=== PATIENT | female | born 1980 | race Caucasian/White ===

== ENCOUNTER → 2016-07-09 | Outpatient (CLI) | payer SELFPAY ==
[2016-07-09 14:28] LABS: ALBUMIN 3.7 GM/DL (3.2-5.2); ALBUMIN/GLOBULIN RATIO 1.03 (1.00-1.93); ALKALINE PHOSPHATASE 59 U/L (45-117); ALT/SGPT 102 U/L (12-78); ANION GAP 8 MEQ/L (8-16); AST/SGOT 99 U/L (15-37); BILIRUBIN,TOTAL 0.6 MG/DL (0.2-1.0); BLOOD UREA NITROGEN 9 MG/DL (7-18); CALCIUM LEVEL 8.7 MG/DL (8.5-10.1); CARBON DIOXIDE LEVEL 29 MEQ/L (21-32); CHLORIDE LEVEL 107 MEQ/L (98-107); CREATININE FOR GFR 0.57 MG/DL (0.55-1.02); FREE T4 1.53 NG/DL (0.76-1.46); GLOMERULAR FILTRATION RATE > 60.0 (>60); GLUCOSE, FASTING 102 MG/DL (70-105); POTASSIUM SERUM 4.4 MEQ/L (3.5-5.1); SODIUM LEVEL 144 MEQ/L (136-145); TOTAL PROTEIN 7.3 GM/DL (6.4-8.2)
== END ==
LOC: M LAB 13:35
PROVIDERS: ATTEND Physician Assistant
DX: E78.4 Other hyperlipidemia (principal); E03.9 Hypothyroidism, unspecified; E11.9 Type 2 diabetes mellitus without complications

== ENCOUNTER 2016-10-18 20:13 | Emergency (ER) | payer OTHER, SELFPAY ==
[~2016-10-18] VITALS: Ht 157.5 cm; Wt 108.4 kg
[2016-10-18] MEDS ORDERED: METF1000 PO (20:22)
[2016-10-18] MEDS ORDERED: OMEP40CA2 PO ×2 (20:22)
[2016-10-18] MEDS ORDERED: birth control PO (20:22)
[2016-10-18] MEDS ORDERED: IRON1TAB PO (20:22)
[2016-10-18] MEDS ORDERED: LISI10TA4 PO (20:22)
[2016-10-18] MEDS ORDERED: LEVO150T7 PO (20:22)
[2016-10-18] MEDS ORDERED: ONDANSETRON 4MG/2ML VIAL (J2405) IV ONE (21:45)
[2016-10-18] MEDS ORDERED: KETOROLAC 30 MG/ML VIAL (J1885) IV ONE (21:45)
[2016-10-18] MEDS ORDERED: NS 1,000 ML IV ONE (21:45)
[2016-10-18] MEDS ORDERED: MORPHINE 2 MG/ML 1ML SYRINGE IV PRN (21:45)
[2016-10-18 21:59] LABS: BASO % 0.3 % (0.0-1.0); EOS # 0.2 K/mm3 (0.0-0.50); EOS % 1.1 % (0.0-3.0); LARGE UNSTAINED CELL # 0.2 K/mm3 (0.0-0.4); LARGE UNSTAINED CELL % 0.9 % (0.0-4.0); LYMPH # 3.4 K/mm3 (1.5-4.5); LYMPH % 18.4 % (24.0-44.0); MEAN CORPUSCULAR HEMOGLOBIN 26.4 pg (27.0-33.0); MEAN CORPUSCULAR HGB CONC 31.7 g/dl (32.0-36.5); MEAN CORPUSCULAR VOLUME 83.3 fl (80.0-96.0); MONO # 0.5 K/mm3 (0.0-0.8); MONO % 2.7 % (0.0-5.0); NEUTROPHILS # 14.3 K/mm3 (1.8-7.7); NEUTROPHILS % 76.7 % (36.0-66.0); PLATELET COUNT, AUTOMATED 368 k/mm3 (150-450); WHITE BLOOD COUNT 18.6 K/mm3 (4.0-10.0)
[2016-10-18 22:26] LABS: ALBUMIN 3.4 GM/DL (3.2-5.2); ALBUMIN/GLOBULIN RATIO 0.92 (1.00-1.93); ALKALINE PHOSPHATASE 54 U/L (45-117); ALT/SGPT 65 U/L (12-78); ANION GAP 10 MEQ/L (8-16); AST/SGOT 80 U/L (15-37); BILIRUBIN,DIRECT 0.2 MG/DL (0.0-0.2); BILIRUBIN,TOTAL 0.5 MG/DL (0.2-1.0); BLOOD UREA NITROGEN 12 MG/DL (7-18); CALCIUM LEVEL 8.8 MG/DL (8.5-10.1); CARBON DIOXIDE LEVEL 28 MEQ/L (21-32); CHLORIDE LEVEL 103 MEQ/L (98-107); CREATININE FOR GFR 0.76 MG/DL (0.55-1.02); GLOMERULAR FILTRATION RATE > 60.0 (>60); GLUCOSE, FASTING 144 MG/DL (70-105); POTASSIUM SERUM 4.1 MEQ/L (3.5-5.1); SODIUM LEVEL 141 MEQ/L (136-145); TOTAL PROTEIN 7.1 GM/DL (6.4-8.2)
--- NOTE | 2016-10-18 22:40 | REPUSA ---
Clinical history: Right upper quadrant pain. Findings: The pancreas is limited in visualization secondary to overlying bowel gas, but appears margo sly unremarkable. The liver demonstrates increased echotexture and echogenicity, with no mass lesion s. The gallbladder contains several echogenic shadowing foci. There is no evidence of gallbladder wal l thickening. The common bile duct measures 5 mm and is within normal limits. The right kidney measur es 13.1 x 5.6 x 4.6 cm, and is unremarkable. There is no ascites. Impression: 1. Cholelithiasis without evidence of acute cholecystitis. 2. Fatty infiltration of the liver.
[2016-10-18] MEDS ORDERED: NORCOTAB PO (23:21)
[2016-10-18] MEDS ORDERED: ZOFR4TAB3 PO (23:21)
[2016-10-18] MEDS ORDERED: NORCO 5/325MG TABLET (BULK FOR ED) PO ONE (23:30)
[2016-10-18 23:33] VITALS: BP 130/68
== END 2016-10-18 23:48 | disposition home or self-care (01) ==
LOC: M ED 22:03
DX: K80.60 Calculus of gallbladder and bile duct with cholecystitis, unspecified, without obstruction (principal); K80.20 Calculus of gallbladder without cholecystitis without obstruction; K29.70 Gastritis, unspecified, without bleeding; K76.0 Fatty (change of) liver, not elsewhere classified; Z79.3 Long term (current) use of hormonal contraceptives; Z79.84 Long term (current) use of oral hypoglycemic drugs; Z79.899 Other long term (current) drug therapy; Z88.5 Allergy status to narcotic agent; Z85.850 Personal history of malignant neoplasm of thyroid

== ENCOUNTER → 2016-12-02 | Outpatient (CLI) | payer OTHER ==
[~2016-12-02] MED LIST: IRON1TAB PO; LEVO150T7 PO; LISI10TA4 PO; METF1000 PO; NORCOTAB PO; OMEP40CA2 PO; ZOFR4TAB3 PO; birth control PO
[2016-12-02 18:29] LABS: ALBUMIN 3.5 GM/DL (3.2-5.2); ALBUMIN/GLOBULIN RATIO 0.95 (1.00-1.93); ALKALINE PHOSPHATASE 63 U/L (45-117); ALT/SGPT 98 U/L (12-78); ANION GAP 6 MEQ/L (8-16); AST/SGOT 67 U/L (15-37); BILIRUBIN,TOTAL 0.2 MG/DL (0.2-1.0); BLOOD UREA NITROGEN 11 MG/DL (7-18); CALCIUM LEVEL 8.9 MG/DL (8.5-10.1); CARBON DIOXIDE LEVEL 29 MEQ/L (21-32); CHLORIDE LEVEL 107 MEQ/L (98-107); GLOMERULAR FILTRATION RATE > 60.0 (>60); GLUCOSE, FASTING 142 MG/DL (70-105); POTASSIUM SERUM 4.7 MEQ/L (3.5-5.1); SODIUM LEVEL 142 MEQ/L (136-145); TOTAL PROTEIN 7.2 GM/DL (6.4-8.2)
--- NOTE | 2016-12-02 19:44 | REP ---
Chest x-ray: Two views. History: There is choose with chest pain. . Comparison study: December 14, 2012. . Findings: The lungs are well inflated and free of infiltrate. The pleural angles are sharp. The heart size is normal. Pulmonary vasculature is not increased. No significant bony abnormality is seen. There are mild degenerative changes in the thoracic spine. Impression: Negative chest x-ray. Signed by Carlos Johansen MD 12/02/2016 07:35 P
[2016-12-02 20:06] LABS: BASO # 0.1 K/mm3 (0.0-0.2); BASO % 0.9 % (0.0-1.0); EOS # 0.3 K/mm3 (0.0-0.50); LARGE UNSTAINED CELL # 0.2 K/mm3 (0.0-0.4); LARGE UNSTAINED CELL % 1.6 % (0.0-4.0); LYMPH # 3.7 K/mm3 (1.5-4.5); MEAN CORPUSCULAR HEMOGLOBIN 26.5 pg (27.0-33.0); MEAN CORPUSCULAR HGB CONC 32.2 g/dl (32.0-36.5); MEAN CORPUSCULAR VOLUME 82.1 fl (80.0-96.0); MONO # 0.7 K/mm3 (0.0-0.8); MONO % 4.8 % (0.0-5.0); NEUTROPHILS # 9.2 K/mm3 (1.8-7.7); NEUTROPHILS % 64.6 % (36.0-66.0); PLATELET COUNT, AUTOMATED 345 k/mm3 (150-450); RED CELL DISTRIBUTION WIDTH 13.4 % (11.5-14.5); WHITE BLOOD COUNT 14.3 K/mm3 (4.0-10.0)
--- NOTE | 2016-12-04 13:35 | ECGEPIP ---
Stationary ECG Study [facility] Test Date: 2016-12-02 Pat Name: ONEIDA MILAN Department: Room: - Gender: F [employer] Head: : 1980 Requested By: ANIBAL French PA-C Order Number: [id number] Reading MD: Cleveland Webber Measurements Intervals [place] Rate: 71 P: 37 GA: 157 QRS: 36 QRSD: 97 T: 17 QT: 387 QTc: 421 Interpretive Statements SINUS RHYTHM SIMILAR TO 12/14/12 Electronically Signed On 12-04-2016 13:34:59 EDT by Cleveland Webber
== END ==
LOC: M LAB 17:05
PROVIDERS: ATTEND Physician Assistant
DX: Z01.818 Encounter for other preprocedural examination (principal); D72.829 Elevated white blood cell count, unspecified; K80.20 Calculus of gallbladder without cholecystitis without obstruction

== ENCOUNTER 2016-12-09 00:02 | Inpatient (IN) | payer OTHER ==
[~2016-12-09] VITALS: Ht 157.5 cm; Wt 104.0 kg
[~2016-12-09 00:02] MED LIST changes: -METF1000 PO; +METF10004 PO
[2016-12-09] MEDS ORDERED: ONDANSETRON 4MG/2ML VIAL (J2405) IV ONE (01:30)
[2016-12-09] MEDS ORDERED: NS 1,000 ML IV ONE (01:30)
[2016-12-09] MEDS ORDERED: MORPHINE 4 MG/ML 1ML SYRINGE IV PRN ×2 (01:30→04:00)
[2016-12-09 01:48] LABS: BASO # 0.1 K/mm3 (0.0-0.2); BASO % 0.7 % (0.0-1.0); EOS # 0.2 K/mm3 (0.0-0.50); EOS % 1.2 % (0.0-3.0); LARGE UNSTAINED CELL # 0.4 K/mm3 (0.0-0.4); LARGE UNSTAINED CELL % 2.3 % (0.0-4.0); LYMPH # 2.9 K/mm3 (1.5-4.5); LYMPH % 16.3 % (24.0-44.0); MEAN CORPUSCULAR HEMOGLOBIN 26.6 pg (27.0-33.0); MEAN CORPUSCULAR HGB CONC 33.6 g/dl (32.0-36.5); MEAN CORPUSCULAR VOLUME 79.2 fl (80.0-96.0); MONO % 5.3 % (0.0-5.0); NEUTROPHILS # 13.3 K/mm3 (1.8-7.7); NEUTROPHILS % 74.2 % (36.0-66.0); PLATELET COUNT, AUTOMATED 325 k/mm3 (150-450); RED CELL DISTRIBUTION WIDTH 13.2 % (11.5-14.5)
[2016-12-09 01:50] LABS: CONTROL LINE HCG INT CTR LINE PRESENT
[2016-12-09 01:55] LABS: ALBUMIN 3.2 GM/DL (3.2-5.2); ALBUMIN/GLOBULIN RATIO 0.86 (1.00-1.93); ALKALINE PHOSPHATASE 66 U/L (45-117); ALT/SGPT 28 U/L (12-78); ANION GAP 13 MEQ/L (8-16); AST/SGOT 24 U/L (15-37); BILIRUBIN,DIRECT < 0.1 MG/DL (0.0-0.2); BILIRUBIN,TOTAL 0.3 MG/DL (0.2-1.0); BLOOD UREA NITROGEN 14 MG/DL (7-18); CARBON DIOXIDE LEVEL 22 MEQ/L (21-32); CHLORIDE LEVEL 106 MEQ/L (98-107); CREATININE FOR GFR 0.67 MG/DL (0.55-1.02); GLOMERULAR FILTRATION RATE > 60.0 (>60); GLUCOSE, FASTING 131 MG/DL (70-105); POTASSIUM SERUM 3.8 MEQ/L (3.5-5.1); SODIUM LEVEL 141 MEQ/L (136-145); TOTAL PROTEIN 6.9 GM/DL (6.4-8.2)
[2016-12-09] MEDS ORDERED: ISOVUE-370 76% 100ML VIAL (Q9967) As Ordered ONE (02:46)
[2016-12-09] MEDS ORDERED: MORPHINE 2 MG/ML 1ML SYRINGE As Ordered ONE ×2 (03:49→03:53)
--- NOTE | 2016-12-09 04:00 | REPUSA ---
CLINICAL HISTORY: Abdominal pain. TECHNIQUE: Multiple axial, sagittal and coronal CT images were obtained through the abdomen and pelvi s after administration of intravenous contrast material. COMMENTS: The liver is mildly enlarged decreased attenuation without mass or defect. There is no intra or extra hepatic biliary ductal dilatation. The spleen is normal. The gallbladder is mildly thickened. Mild mejía rrounding free fluid. The pancreas is of normal contour and attenuation characteristics. There is no evidence of adrenal mass. Both kidneys demonstrate prompt and equal nephrograms. The kidneys are normal in size, shape and conf iguration. There is no evidence of renal or ureteral mass. No renal or ureteral calculi are identifie d. There is no hydroureter or hydronephrosis. No evidence for appendicitis. There is diffuse thickening of the wall of the ileum with associated e nhancement. Diffusely thickened, enhancing colon. No evidence for small or large bowel obstruction. There is no evidence of intrinsic or extrinsic bladder mass. There is small amount of free pelvic flu id. Images of the lung bases show no evidence of pleural or parenchymal mass. There are no pleural effusi ons. The bony structures are free of lytic or blastic lesions. IMPRESSION: Enterocolitis. Inflammatory bowel disease is included in the differential diagnosis. No perforation or abscess formation. No evidence for pneumoperitoneum. Free fluid in the pelvis. Hepatomegaly with fat infiltration. Mildly thickened gallbladder. Mild surrounding free fluid. Thank you for your kind referral of this patient.
[2016-12-09] MEDS ORDERED: metroNIDAZOLE 500 MG in APPROPRIATE DILUENT 1 EA IV ONE (04:30)
[2016-12-09] MEDS ORDERED: CIPROFLOXACIN 400 MG in APPROPRIATE DILUENT 1 EA IV ONE (04:30)
[2016-12-09] MEDS ORDERED: SYNT100T PO (04:44)
[2016-12-09] MEDS ORDERED: METF750T PO (04:44)
[2016-12-09] MEDS ORDERED: FERR1TAB8 PO (04:44)
[2016-12-09] MEDS ORDERED: TYLE500T78 PO (04:47)
[2016-12-09] MEDS ORDERED: PATIENT COMMENT (04:47)
[2016-12-09] MEDS ORDERED: VITA1CAP40 PO (04:47)
--- NOTE | 2016-12-09 05:09 | HPEPDOC ---
General Date of Admission Chief Complaint The patient is a 36-year-old female admitted with a reason for visit of N/V/D. Source: Patient Exam Limitations: No limitations Timing/Duration: Day(s) (2) Severity: Severe Associated Symptoms: Fever, Chills, Loss of appetite, Malaise, Nausea, Vomiting History of Present Illness 36 y/o female with past medical hx of thyroid CA s/p resection 2013, DM2, GERD, Fe deficient anemia presents with CC of 2-3 day duration of intense abdominal pain associated with profuse watery stools. The pt states that 3 days ago she began having very intense, sharp low abdominal pain that was shortly followed by episodes of profuse loose stool, she states that since that time shes had 50- 60 episodes of loose stool, denies blood or mucus in the stool. She states she also had a fever, temp of 102 one day ago that she took tylenol for and last night began having nausea and vomiting episodes, of watery content, no blood. She denies SOB, palpitations or CP. She states this has never happened to her before, denies recent travel or eating anything unusual. Denies sick contact. Denies h/a or change in vision. Admits to dec. appetite. Home Medications Scheduled (Ortho Tri-Cyclen 0.18/0.215/0.25 mg-35 Mcg) 1 Tab Tab, 1 TAB PO DAILY, ( Reported) Ergocalciferol (Vitamin D) 50,000 Unit Cap, 50,000 UNIT PO 1XWK, (Reported) WEDNESDAY MORNINGS Ferrous Sulfate (Ferrous Sulfate) 325 Mg Tab, 325 MG PO BID, (Reported) Levothyroxine Sodium (Synthroid) 100 Mcg Tab, 200 MCG PO DAILY, (Reported) Lisinopril (Lisinopril) 10 Mg Tab, 10 MG PO DAILY, (Reported) Metformin Hydrochloride (Metformin HCl ER) 750 Mg Tab, 750 MG PO QPM, (Reported) TAKES AFTER DINNER Omeprazole (Omeprazole) 40 Mg Cap, 40 MG PO QPM, (Reported) TAKES AFTER DINNER Scheduled PRN Acetaminophen (Tylenol Extra Strength) 500 Mg Tab, 1,000 MG PO Q6H PRN for PAIN, (Reported) Allergies Coded Allergies: Codeine (Verified Allergy, Unknown, 09/12/12) Past Medical History Medical History thyroid cancer s/p resection 2014 gerd dm2 Family History Significant Family History: No pertinent family hx Social History * Smoker: Denies Alcohol: Denies Drugs: denies Review of Symptoms Constitutional: Reports: Chills, Fever, Malaise, Weakness, Fatigue Eyes: Denies: Vision change, Conjunctivae inflammation ENT: Denies: Head Aches Skin: Denies: Rash, Lesions Pulmonary: Denies: Dyspnea, Cough Cardiovascular: Denies: Chest Pain, Palpitations, Orthopnea, Lt Headedness Gastrointestinal: Reports: Nausea, Vomiting, Abdominal Pain, Diarrhea, Denies: Constipation, Melena, Hematochezia Genitourinary: Denies: Dysuria Endocrine: Denies: Polydipsia Neurological: Denies: Weakness, Numbness Psych: Reports: Mood Normal Physical Examination General Exam: Positive: Alert, Cooperative, Mild Distress Eye Exam: Positive: Conjunctiva & lids normal, EOMI, Negative: Sclera icteric ENT Exam: Positive: Mucous membr. moist/pink, Pharynx Normal Neck Exam: Positive: Supple Chest Exam: Positive: Clear to auscultation, Normal air movement, Negative: Rales, Rhonchi, Wheezing, Diminished Heart Exam: Positive: Rate Normal, Regular Rhythm, Normal S1, Normal S2, Negative: Gallops, Murmurs Abdomen Exam: Positive: Normal bowel sounds, Soft, Tenderness (diffuse), Negative: Hepatospenomegaly, Mass Neuro Exam: Positive: Normal Speech Psych Exam: Positive: Mental status NL Vital Signs Vital Signs Date Time Temp Pulse Resp B/P (MAP) Pulse Ox O2 Delivery O2 Flow Rate FiO2 12/09/16 04:18 16 95 Room Air 12/09/16 03:03 131/71 (91) 12/09/16 02:47 76 12/09/16 01:01 99.2 Laboratory Data Labs 24H Laboratory Tests 2 12/09/16 01:15: White Blood Count 18.0H, Red Blood Count 5.25, Hemoglobin 14.0, Hematocrit 41.6 , Mean Corpuscular Volume 79.2L, Mean Corpuscular Hemoglobin 26.6L, Mean Corpuscular Hemoglobin Concent 33.6, Red Cell Distribution Width 13.2, Platelet Count 325, Neutrophils (%) (Auto) 74.2H, Lymphocytes (%) (Auto) 16.3L, Monocytes (%) (Auto) 5.3H, Eosinophils (%) (Auto) 1.2, Basophils (%) (Auto) 0.7 , Neutrophils # (Auto) 13.3H, Lymphocytes # (Auto) 2.9, Monocytes # (Auto) 1.0H , Eosinophils # (Auto) 0.2, Basophils # (Auto) 0.1, Large Unclassified Cells % 2.3, Large Unclassified Cells # 0.4, Anion Gap 13, Glomerular Filtration Rate > 60.0, Calcium Level 9.0, Aspartate Amino Transf (AST/SGOT) 24, Alanine Aminotransferase (ALT/SGPT) 28, Alkaline Phosphatase 66, Total Bilirubin 0.3, Direct Bilirubin < 0.1, Total Protein 6.9, Albumin 3.2, Albumin/Globulin Ratio 0.86L, Lipase 236, Human Chorionic Gonadotropin, Qual NEGATIVE 12/09/16 04:07: Urine Appearance CLEAR, Urine Color YELLOW, Urine pH 5.0, Urine Specific [place] >1.060H, Urine Protein NEGATIVE, Urine Glucose (UA) NEGATIVE, Urine Ketones 2+H, Urine Urobilinogen 0.2, Urine Bilirubin NEGATIVE, Urine Leukocyte Esterase NEGATIVE, Urine Blood NEGATIVE, Urine Nitrite NEGATIVE, Urine WBC (Auto ) 2, Urine RBC (Auto) 1, Urine Hyaline Casts (Auto) 0, Urine Bacteria (Auto) NEGATIVE, Urine Squamous Epithelial Cells 5, Urine Mucus (Auto) SMALL, Urine Sperm (Auto) CBC/BMP Laboratory Tests 12/09/16 01:15 Red Blood Count 5.25, Mean Corpuscular Volume 79.2 L, Mean Corpuscular Hemoglobin 26.6 L, Mean Corpuscular Hemoglobin Concent 33.6, Red Cell Distribution Width 13.2, Neutrophils (%) (Auto) 74.2 H, Lymphocytes (%) (Auto) 16.3 L, Monocytes (%) (Auto) 5.3 H, Eosinophils (%) (Auto) 1.2, Basophils (%) ( Auto) 0.7, Neutrophils # (Auto) 13.3 H, Lymphocytes # (Auto) 2.9, Monocytes # ( Auto) 1.0 H, Eosinophils # (Auto) 0.2, Basophils # (Auto) 0.1 Microbiology Microbiology 12/09/16 Blood Culture, Received Pending 12/09/16 Blood Culture, Received Pending 12/09/16 Gastrointestinal Tract Panel (PCR) - Preliminary, Resulted Campylobacter 12/09/16 Urine Culture, Received Pending Problems (1) Pancolitis Status: Acute Response to Treatment: Stable Problem Text: CT in ED showed Enterocolitis. Inflammatory bowel disease is included in the differential diagnosis. No perforation or abscess formation. No evidence for pneumoperitoneum. Free fluid in the pelvis. Hepatomegaly with fat infiltration. Mildly thickened gallbladder. Mild surrounding free fluid Will treat with antibiotics GI panel pending Sulfasalazine treatment begin (2) Vomiting Status: Acute Response to Treatment: Stable Problem Text: Zofran scheduled (3) Abdominal pain Status: Acute Response to Treatment: Stable Problem Text: Morphine scheduled (4) DM2 (diabetes mellitus, type 2) Status: Chronic Response to Treatment: Stable Problem Text: Sliding scale (5) Hx of thyroid cancer Status: Chronic Response to Treatment: Stable Problem Text: stable continue home medications (6) DVT prophylaxis Status: Acute Response to Treatment: Stable Problem Text: scd teds Plan / VTE VTE Prophylaxis Ordered?: Yes GME ATTESTATION GME ATTESTATION My preceptor for this patient encounter was physically present in the building during the encounter and was fully available. As needed, all aspects of the patient interview, examination, medical decision making process, and medical care plan development were reviewed and approved by the preceptor. Preceptor is aware and concurs with the plan as stated in the body of this note and will attest to such by his/her cosignature. TOM STOCKTON DO Dec 09, 2016 05:09
[2016-12-09] MEDS ORDERED: ORTHTAB14 PO (05:17)
[2016-12-09] MEDS ORDERED: GLUCAGON FOR INJ 1 MG VIAL (J1610) SC PRN (05:30)
[2016-12-09] MEDS ORDERED: GLUCOSE 4 GM CHEW TABLET PO PRN (05:30)
[2016-12-09] MEDS ORDERED: DEXTROSE 50% 50 ML SYRINGE IV PRN (05:30)
[2016-12-09 09:45] VITALS: BP 128/77
[2016-12-09] MEDS: MORPHINE 2 MG/ML 1ML SYRINGE IV PRN ×3 (11:48→21:56)
[2016-12-09] MEDS: LEVOTHYROXINE 100MCG TABLET (0.1MG) PO SCH (12:58)
[2016-12-09] MEDS: NS 1,000 ML IV SCH ×2 (12:59→22:30)
[2016-12-09] MEDS: sulfaSALAzine 500 MG TABEC PO SCH ×2 (15:57→21:56)
[2016-12-09] MEDS: FERROUS SULFATE 325MG TAB PO SCH ×2 (15:58→21:56)
[2016-12-09] MEDS: LISINOPRIL 10 MG TAB PO SCH (15:59)
[2016-12-09] MEDS: CIPROFLOXACIN 400 MG in APPROPRIATE DILUENT 1 EA IV SCH (15:59)
[2016-12-09 16:00] VITALS: BP 131/68
--- NOTE | 2016-12-09 18:24 | IPN ---
DATE: 12/09/2016 SUBJECTIVE: Patient is seen and examined in the room today. Patient stated she started having diarrhea during the weekend. Patient is living with her and they have a son, both of them do not have any gastrointestinal (GI) symptoms. OBJECTIVE: VITAL SIGNS: Temperature is 98.3, pulse 78, respirations 18, blood pressure 128/77, pulse oximetry 97% in room air. GENERAL: No sign of acute distress. HEENT: Normocephalic, atraumatic. Extraocular motors grossly intact. CARDIOVASCULAR: Positive S1, S2, regular rate. LUNGS: Clear to auscultation bilaterally. ABDOMEN: Mild tenderness to palpation. Abdomen is soft. Bowel sounds present. EXTREMITIES: No edema. No sign of cyanosis. LABORATORY DATA: WBC 18, hemoglobin 14, hematocrit 41.6, platelet count 325. Sodium 141, potassium 3.8, chloride 106, carbon dioxide 22, BUN 14, creatinine 0.67, GFR greater than 60, fasting glucose 131, calcium 9, total bilirubin 0.3, direct bilirubin less than 0.1, AST 24, ALT 28, alkaline phosphatase 66, total protein 6.9, albumin 3.2, lactic acid is 236. hCG is negative. ASSESSMENT AND PLAN: 1. Campylobacter infection. Patient was started on ciprofloxacin. Patient has nausea and vomiting due to the bacterial infection, will control with Zofran. Start with liquid diet and advance as tolerated. Patient will be on fluid support while patient is advancing her diet. 2. Type 2 diabetes, on sliding scale. 3. History of thyroid cancer. 4. Deep venous thrombosis (DVT) prophylaxis. Patient is on thromboembolism deterrents (TEDs) and sequential compression device.
[2016-12-09] MEDS: OMEPRAZOLE 20 MG CAP PO SCH (18:38)
[2016-12-09] MEDS: HumaLOG INSULIN (NovoLOG) PER UNIT SC SCH (18:39)
[2016-12-09 20:00] VITALS: BP 138/86
[2016-12-09] MEDS ORDERED: HumaLOG INSULIN (NovoLOG) PER UNIT SC SCH (21:00)
[2016-12-10] VITALS: BP 125/74
[2016-12-10] MEDS: CIPROFLOXACIN 400 MG in APPROPRIATE DILUENT 1 EA IV SCH ×2 (03:57→16:04)
[2016-12-10] MEDS: LEVOTHYROXINE 100MCG TABLET (0.1MG) PO SCH (06:30)
[2016-12-10 06:53] LABS: BASO # 0.1 K/mm3 (0.0-0.2); BASO % 0.5 % (0.0-1.0); EOS # 0.3 K/mm3 (0.0-0.50); LARGE UNSTAINED CELL # 0.3 K/mm3 (0.0-0.4); LARGE UNSTAINED CELL % 2.4 % (0.0-4.0); LYMPH # 2.7 K/mm3 (1.5-4.5); LYMPH % 21.9 % (24.0-44.0); MEAN CORPUSCULAR HGB CONC 32.8 g/dl (32.0-36.5); MEAN CORPUSCULAR VOLUME 79.4 fl (80.0-96.0); MONO # 0.5 K/mm3 (0.0-0.8); MONO % 4.6 % (0.0-5.0); NEUTROPHILS # 7.4 K/mm3 (1.8-7.7); NEUTROPHILS % 67.6 % (36.0-66.0); PLATELET COUNT, AUTOMATED 227 k/mm3 (150-450); RED CELL DISTRIBUTION WIDTH 13.4 % (11.5-14.5)
[2016-12-10 07:03] LABS: ANION GAP 8 MEQ/L (8-16); BLOOD UREA NITROGEN 6 MG/DL (7-18); CARBON DIOXIDE LEVEL 26 MEQ/L (21-32); CHLORIDE LEVEL 108 MEQ/L (98-107); CREATININE FOR GFR 0.61 MG/DL (0.55-1.02); GLOMERULAR FILTRATION RATE > 60.0 (>60); GLUCOSE, FASTING 121 MG/DL (70-105); POTASSIUM SERUM 3.6 MEQ/L (3.5-5.1); SODIUM LEVEL 142 MEQ/L (136-145)
[2016-12-10 08:00] VITALS: BP 136/75
[2016-12-10] MEDS: sulfaSALAzine 500 MG TABEC PO SCH ×4 (08:30→20:24)
[2016-12-10] MEDS: NS 1,000 ML IV SCH ×3 (08:30→21:46)
[2016-12-10] MEDS: HumaLOG INSULIN (NovoLOG) PER UNIT SC SCH ×3 (08:30→17:53)
[2016-12-10] MEDS: LISINOPRIL 10 MG TAB PO SCH (08:31)
[2016-12-10] MEDS: FERROUS SULFATE 325MG TAB PO SCH ×2 (08:31→20:25)
[2016-12-10] MEDS: MORPHINE 2 MG/ML 1ML SYRINGE IV PRN ×2 (13:05→22:27)
[2016-12-10 16:00] VITALS: BP 134/81
[2016-12-10] MEDS: OMEPRAZOLE 20 MG CAP PO SCH (18:52)
[2016-12-10 20:00] VITALS: BP 123/64
--- NOTE | 2016-12-10 20:29 | IPN ---
DATE: 12/10/2016 SUBJECTIVE: Patient seen and examined in the room today. Patient stated her nausea and vomiting are improving. Patient's bowel movement is also improving; however, patient noted her abdominal pain was changed from generalized upper abdominal pain to the right upper quadrant pain. No overnight events reported. OBJECTIVE: VITAL SIGNS: Temperature 97.9, pulse is 75, respirations 18, blood pressure 136/75, pulse oximetry 98% in room air. GENERAL: No sign of distress, alert and oriented times three. HEENT: Normocephalic, atraumatic. Extraocular motor grossly intact. CARDIOVASCULAR: Positive S1, S2, respiratory rate. LUNGS: Clear to auscultation bilaterally. ABDOMEN: Tenderness to palpation in the right upper quadrant. Abdomen soft. Bowel sounds present. EXTREMITIES: No edema. No sign of cyanosis. LABORATORY DATA: WBC 11, hemoglobin 11.4, hematocrit is 34.9, platelet count is 227. Sodium is 142, potassium 3.6, chloride is 108, carbon dioxide is 26, BUN 6, creatinine 0.61, GFR greater than 60, fasting glucose 121, calcium 8, lipase is 433. ASSESSMENT AND PLAN: 1. Campylobacter infection. Patient is started on ciprofloxacin. Nausea and vomiting are improving. Bowel movement is also improved. Patient is able to advance diet as tolerated; however, today, due to acute onset of pancreatitis, patient's diet was switched to nothing by mouth. Patient will continue on fluid support. 2. Acute pancreatitis. Patient nothing by mouth. Patient is on intravenous (IV) support. Patient has morphine as needed for the pain. 3. Type 2 diabetes. Patient is currently nothing by mouth. Will follow with sliding scale every 6 hours. Patient has history of thyroid cancer. 4. History of gallbladder disease. Per patient, patient has established with Dr. Díaz. Patient is supposed to have scheduled gallbladder surgery on 12/25/2016. Patient had a CT abdomen performed on 12/09/2016, which showed mildly thickened gallbladder and mild surrounding free fluid. We will obtain gallbladder ultrasound. 5. Deep vein thrombosis (DVT) prophylaxis. Patient on thromboembolic deterrents (TEDs), and sequential compression devices. Tomorrow, patient's care will transfer to the [facility].
[2016-12-10] MEDS: ONDANSETRON 4MG/2ML VIAL (J2405) IV PRN (22:35)
[2016-12-11] VITALS: BP 131/65
[2016-12-11] MEDS: CIPROFLOXACIN 400 MG in APPROPRIATE DILUENT 1 EA IV SCH ×2 (03:28→16:19)
[2016-12-11] MEDS: HumaLOG INSULIN (NovoLOG) PER UNIT SC SCH ×4 (06:00→17:49)
[2016-12-11] MEDS: LEVOTHYROXINE 100MCG TABLET (0.1MG) PO SCH (06:05)
[2016-12-11] MEDS: NS 1,000 ML IV SCH ×2 (06:05→20:12)
[2016-12-11] MEDS: ONDANSETRON 4MG/2ML VIAL (J2405) IV PRN (06:11)
[2016-12-11] MEDS: MORPHINE 2 MG/ML 1ML SYRINGE IV PRN (06:11)
[2016-12-11 07:37] LABS: BASO % 0.6 % (0.0-1.0); EOS # 0.2 K/mm3 (0.0-0.50); EOS % 2.3 % (0.0-3.0); LARGE UNSTAINED CELL # 0.2 K/mm3 (0.0-0.4); LARGE UNSTAINED CELL % 2.1 % (0.0-4.0); LYMPH # 2.1 K/mm3 (1.5-4.5); LYMPH % 24.9 % (24.0-44.0); MEAN CORPUSCULAR HEMOGLOBIN 26.1 pg (27.0-33.0); MEAN CORPUSCULAR HGB CONC 32.6 g/dl (32.0-36.5); MEAN CORPUSCULAR VOLUME 79.9 fl (80.0-96.0); MONO # 0.4 K/mm3 (0.0-0.8); MONO % 4.8 % (0.0-5.0); NEUTROPHILS # 5.5 K/mm3 (1.8-7.7); NEUTROPHILS % 65.4 % (36.0-66.0); PLATELET COUNT, AUTOMATED 241 k/mm3 (150-450); RED CELL DISTRIBUTION WIDTH 13.3 % (11.5-14.5); WHITE BLOOD COUNT 8.5 K/mm3 (4.0-10.0)
[2016-12-11 07:50] LABS: ANION GAP 8 MEQ/L (8-16); BLOOD UREA NITROGEN 4 MG/DL (7-18); CALCIUM LEVEL 7.8 MG/DL (8.5-10.1); CARBON DIOXIDE LEVEL 24 MEQ/L (21-32); CHLORIDE LEVEL 111 MEQ/L (98-107); CREATININE FOR GFR 0.45 MG/DL (0.55-1.02); GLOMERULAR FILTRATION RATE > 60.0 (>60); GLUCOSE, FASTING 136 MG/DL (70-105); POTASSIUM SERUM 3.4 MEQ/L (3.5-5.1); SODIUM LEVEL 143 MEQ/L (136-145)
--- NOTE | 2016-12-11 08:26 | REP ---
Clinical: Pancreatitis. Technique: Real time ely scale ultrasound examination using curved array transducer. Findings: Liver demonstrates fatty infiltration without focal hepatic lesion identified. Pancreas is incompletely evaluated due to interposed bowel gas and poor through transmission. The gallbladder demonstrates [id number] pattern consistent with cholelithiasis. No obvious wall thickening or pericholecystic fluid is appreciated. Right kidney is normal in reniform shape without hydronephrosis and measures 13.5 x 7.2 x 4.8 cm. No ascites. Impression: Cholelithiasis. Fatty infiltration to the liver. Signed by Harris Veras MD 12/11/2016 08:17 A
[2016-12-11 08:30] VITALS: BP 158/90
[2016-12-11] MEDS: FERROUS SULFATE 325MG TAB PO SCH ×2 (09:20→20:12)
[2016-12-11] MEDS: LISINOPRIL 10 MG TAB PO SCH (09:20)
--- NOTE | 2016-12-11 09:25 | IPNPDOC ---
Subjective Date Seen The patient was seen on 12/11/16. Subjective Chief Complaint/HPI The patient is a 36-year-old female admitted with a reason for visit of Enterocolitis. Events since last encounter Elevated lipase yesterday. US completed: + for cholelithiasis. + nausea, abdominal pain. + flatus Constitutional: Denies: Chills, Fever, Night Sweats Skin: Denies: Rash, Lesions, Breakdown Pulmonary: Denies: Dyspnea, Cough Cardiovascular: Denies: Chest Pain, Palpitations, Orthopnea, Paroxysmal Noc. Dyspnea, Lt Headedness Gastrointestinal: Reports: Nausea, Abdominal Pain Genitourinary: Denies: Dysuria, Frequency, Incontinence, Retention Psych: Reports: Mood Normal, Denies: Depression, Memory Issues Objective Physical Examination General Exam: Positive: Alert, Cooperative, Mild Distress Eye Exam: Positive: Conjunctiva & lids normal, EOMI, Negative: Sclera icteric ENT Exam: Positive: Mucous membr. moist/pink, Pharynx Normal Neck Exam: Positive: Supple Chest Exam: Positive: Clear to auscultation, Normal air movement, Negative: Rales, Rhonchi, Wheezing, Diminished Heart Exam: Positive: Rate Normal, Regular Rhythm, Normal S1, Normal S2, Negative: Gallops, Murmurs Abdomen Exam: Positive: Normal bowel sounds, Soft, Tenderness (bilateral upper quadrants, but right > left), Negative: Hepatospenomegaly, Mass Neuro Exam: Positive: Normal Speech Psych Exam: Positive: Mental status NL Assessment /Plan Problems (1) Pancreatitis Status: Acute Problem Specific Plan: Monitor Clinically Problem Text: In presence of abdominal pain while NPO, MRCP ordered for eval. (2) Cholelithiases Status: Acute Problem Text: Confirmed on US this am. Scheduled for cholecystectomy with Dr. Díaz 12/25. eval MRCP to r/o obstruction causing pancreatitis. (3) Campylobacter enteritis Status: Acute Response to Treatment: Improving Problem Text: 12/11/16: DC sulfasalazine. + for campylobacter. On Cipro IV. CT in ED showed Enterocolitis. Inflammatory bowel disease is included in the differential diagnosis. No perforation or abscess formation. No evidence for pneumoperitoneum. Free fluid in the pelvis. Hepatomegaly with fat infiltration. Mildly thickened gallbladder. Mild surrounding free fluid Will treat with antibiotics GI panel pending Sulfasalazine treatment begin (4) Vomiting Status: Acute Response to Treatment: Stable Problem Text: Zofran scheduled (5) DM2 (diabetes mellitus, type 2) Status: Chronic Response to Treatment: Stable Problem Text: Sliding scale (6) Hx of thyroid cancer Status: Chronic Response to Treatment: Stable Problem Text: stable continue home medications (7) DVT prophylaxis Status: Acute Response to Treatment: Stable Problem Text: scd teds Plan/VTE VTE Prophylaxis Ordered?: Yes Plan Diagnostics: MRI (MRCP ordered for today) Family Medicine Attending Note: I saw and examined Ms. Steele, discussed with ROBERT Julio. Agree with their note as documented. She is quite tender in her abdomen, has elevated and slightly rising lipase levels. The curious thing is she is not that tender in her left upper quadrant. MRCP is ordered to evaluate for choledocholithiasis or gallstone pancreatitis. We'll treat as indicated. (financial administration officer) VS, I&O, 24H, Fishbone Vital Signs/I&O Vital Signs Date Time Temp Pulse Resp B/P (MAP) Pulse Ox O2 Delivery O2 Flow Rate FiO2 12/11/16 06:21 16 12/11/16 04:00 Room Air 12/11/16 00:00 99.2 69 131/65 (87) 93 I&O- Last 24 Hours up to 6 AM 12/11/16 06:00 Intake Total 3570 ml Output Total 1250 ml Balance 2320 ml Laboratory Data 24H LABS Laboratory Tests 2 12/10/16 11:34: Bedside Glucose (Misc Panel) 120H 12/10/16 17:39: Bedside Glucose (Misc Panel) 104 12/11/16 00:00: Bedside Glucose (Misc Panel) 103 12/11/16 06:54: Bedside Glucose (Misc Panel) 117H 12/11/16 07:15: White Blood Count 8.5, Red Blood Count 4.17, Hemoglobin 10.9L, Hematocrit 33.3L , Mean Corpuscular Volume 79.9L, Mean Corpuscular Hemoglobin 26.1L, Mean Corpuscular Hemoglobin Concent 32.6, Red Cell Distribution Width 13.3, Platelet Count 241, Neutrophils (%) (Auto) 65.4, Lymphocytes (%) (Auto) 24.9, Monocytes ( %) (Auto) 4.8, Eosinophils (%) (Auto) 2.3, Basophils (%) (Auto) 0.6, Neutrophils # (Auto) 5.5, Lymphocytes # (Auto) 2.1, Monocytes # (Auto) 0.4, Eosinophils # (Auto) 0.2, Basophils # (Auto) 0.0, Large Unclassified Cells % 2.1 , Large Unclassified Cells # 0.2, Anion Gap 8, Glomerular Filtration Rate > 60.0 , Blood Urea Nitrogen 4L, Creatinine 0.45L, Sodium Level 143, Potassium Level 3.4L, Chloride Level 111H, Carbon Dioxide Level 24, Calcium Level 7.8L, Lipase 443H CBC/BMP Laboratory Tests 12/11/16 07:15 Red Blood Count 4.17, Mean Corpuscular Volume 79.9 L, Mean Corpuscular Hemoglobin 26.1 L, Mean Corpuscular Hemoglobin Concent 32.6, Red Cell Distribution Width 13.3, Neutrophils (%) (Auto) 65.4, Lymphocytes (%) (Auto) 24.9, Monocytes (%) (Auto) 4.8, Eosinophils (%) (Auto) 2.3, Basophils (%) (Auto ) 0.6, Neutrophils # (Auto) 5.5, Lymphocytes # (Auto) 2.1, Monocytes # (Auto) 0.4, Eosinophils # (Auto) 0.2, Basophils # (Auto) 0.0, Calcium Level 7.8 L Microbiology Microbiology 12/09/16 Blood Culture - Preliminary, Resulted No Growth after 48 hours. All Specime... 12/09/16 Blood Culture - Preliminary, Resulted No Growth after 48 hours. All Specime... 12/09/16 Gastrointestinal Tract Panel (PCR) - Final, Complete Campylobacter 12/09/16 Urine Culture - Final, Complete Tess Bautista Dec 11, 2016 09:25 Daniel Paredes MD Dec 11, 2016 20:47
[2016-12-11] MEDS ORDERED: KCL 10MEQ IN 100ML SWI (KRUN) 10 MEQ in APPROPRIATE DILUENT 1 EA IV ONE ×2 (10:00)
[2016-12-11] MEDS ORDERED: POTASSIUM CHLORIDE 10 MEQ SR TABLET PO ONE (11:15)
--- NOTE | 2016-12-11 13:18 | REP ---
MRCP EXAM: MR ABDOMEN WITHOUT CONTRAST. HISTORY: Pancreatitis and gallstones. COMPARISON: CT study December 09, 2016. TECHNIQUE: Axial and coronal T2 TRUE FISP and T2 HASTE imaging sequences are acquired. In addition to turbo spin-echo, T2-weighted MRCP acquisition is acquired and maximum intensity projection images are generated and displayed rotationally. Source coronal images are also reviewed. MRCP FINDINGS: Multiple faceted gallstones fill the lumen of the gallbladder. There is no evidence of intrahepatic or extrahepatic biliary ductal dilation however. The common bile duct is not dilated, and there is no evidence of choledocholithiasis or biliary stricture. The main pancreatic duct is normal in caliber. No abnormal fluid collection is appreciated. No focal pancreatic lesion is seen although this is not a dedicated pancreatic MR protocol. The visualized portions of the liver, spleen, and kidneys are unremarkable. No adrenal lesion is seen. There is evidence of minimal ascites. IMPRESSION: Evidence of minimal ascites. No biliary ductal dilation. Cholelithiasis. Signed by Carlos Johansen MD 12/11/2016 04:39 P
[2016-12-11 16:00] VITALS: BP 142/80
[2016-12-11] MEDS: OMEPRAZOLE 20 MG CAP PO SCH (18:01)
[2016-12-11 20:00] VITALS: BP 122/73
[2016-12-12 00:15] VITALS: BP 131/72
[2016-12-12] MEDS: CIPROFLOXACIN 400 MG in APPROPRIATE DILUENT 1 EA IV SCH (04:48)
[2016-12-12] MEDS: HumaLOG INSULIN (NovoLOG) PER UNIT SC SCH ×3 (06:00→12:00)
[2016-12-12] MEDS: LEVOTHYROXINE 100MCG TABLET (0.1MG) PO SCH (06:28)
[2016-12-12] MEDS: NS 1,000 ML IV SCH (06:28)
[2016-12-12 06:50] LABS: BASO % 0.3 % (0.0-1.0); EOS # 0.2 K/mm3 (0.0-0.50); EOS % 2.4 % (0.0-3.0); LARGE UNSTAINED CELL # 0.2 K/mm3 (0.0-0.4); LARGE UNSTAINED CELL % 2.4 % (0.0-4.0); LYMPH # 2.7 K/mm3 (1.5-4.5); LYMPH % 28.4 % (24.0-44.0); MEAN CORPUSCULAR HEMOGLOBIN 26.4 pg (27.0-33.0); MEAN CORPUSCULAR HGB CONC 33.6 g/dl (32.0-36.5); MEAN CORPUSCULAR VOLUME 78.7 fl (80.0-96.0); MONO # 0.4 K/mm3 (0.0-0.8); MONO % 4.1 % (0.0-5.0); NEUTROPHILS # 5.4 K/mm3 (1.8-7.7); NEUTROPHILS % 62.4 % (36.0-66.0); PLATELET COUNT, AUTOMATED 252 k/mm3 (150-450); RED CELL DISTRIBUTION WIDTH 13.5 % (11.5-14.5); WHITE BLOOD COUNT 8.6 K/mm3 (4.0-10.0)
[2016-12-12 07:04] LABS: ANION GAP 7 MEQ/L (8-16); BLOOD UREA NITROGEN 3 MG/DL (7-18); CALCIUM LEVEL 8.1 MG/DL (8.5-10.1); CARBON DIOXIDE LEVEL 25 MEQ/L (21-32); CHLORIDE LEVEL 108 MEQ/L (98-107); CREATININE FOR GFR 0.49 MG/DL (0.55-1.02); GLOMERULAR FILTRATION RATE > 60.0 (>60); GLUCOSE, FASTING 99 MG/DL (70-105); POTASSIUM SERUM 3.3 MEQ/L (3.5-5.1); SODIUM LEVEL 140 MEQ/L (136-145)
[2016-12-12 08:00] VITALS: BP 123/58
[2016-12-12] MEDS: FERROUS SULFATE 325MG TAB PO SCH ×2 (09:09→21:40)
[2016-12-12 09:10] VITALS: BP 123/58
[2016-12-12] MEDS: LISINOPRIL 10 MG TAB PO SCH (09:10)
[2016-12-12] MEDS ORDERED: AZITHROMYCIN 250 MG TAB PO ONE (10:00)
--- NOTE | 2016-12-12 10:48 | IPNPDOC ---
Subjective Date Seen The patient was seen on 12/12/16. Subjective Chief Complaint/HPI The patient is a 36-year-old female admitted with a reason for visit of Enterocolitis. Constitutional: Denies: Chills, Malaise ENT: Denies: Head Aches, Dysphagia Pulmonary: Denies: Dyspnea, Cough, Pleuritic Chest Pain Cardiovascular: Denies: Chest Pain, Palpitations, Orthopnea Gastrointestinal: Reports: Other Symptoms (stool is more formed and less frequent. abdominal pain has resolved), Denies: Abdominal Pain Genitourinary: Denies: Dysuria, Frequency Hematologic: Denies: Bruising Endocrine: Denies: Polydipsia, Polyuria Objective Physical Examination General Exam: Positive: Alert, Cooperative, Mild Distress Eye Exam: Positive: Conjunctiva & lids normal, EOMI, Negative: Sclera icteric ENT Exam: Positive: Mucous membr. moist/pink, Pharynx Normal Neck Exam: Positive: Supple Chest Exam: Positive: Clear to auscultation, Normal air movement, Negative: Rales, Rhonchi, Wheezing, Diminished Heart Exam: Positive: Rate Normal, Regular Rhythm, Normal S1, Normal S2, Negative: Gallops, Murmurs Abdomen Exam: Positive: Normal bowel sounds, Soft, Negative: Tenderness (non-tender today), Hepatospenomegaly, Mass Neuro Exam: Positive: Normal Speech Psych Exam: Positive: Mental status NL Assessment /Plan Problems (1) Pancreatitis Status: Resolved Problem Specific Plan: Monitor Clinically Problem Text: 12/12/16. MRI done yesterday shows no evidence for ductal dilation or stone and pancreas appears to be normal. Note that she has documented Campylobacter infection that can also cause modest elevations of Lipase In presence of abdominal pain while NPO, MRCP ordered for eval. (2) Cholelithiases Status: Chronic Problem Text: 12/12/16: also confirmed by MRI, no stones in ducts and no ductal dilation. Confirmed on US this am. Scheduled for cholecystectomy with Dr. Díaz 12/25. eval MRCP to r/o obstruction causing pancreatitis. (3) Campylobacter enteritis Status: Acute Response to Treatment: Improving Problem Text: 12/12/16: some Campylobacter spp are resistant to cipro so single dose of azithromycin ordered. Signs and symptoms are improving. Will advance diet and change to po cipro. likely discharge tomorrow. 12/11/16: DC sulfasalazine. + for campylobacter. On Cipro IV. CT in ED showed Enterocolitis. Inflammatory bowel disease is included in the differential diagnosis. No perforation or abscess formation. No evidence for pneumoperitoneum. Free fluid in the pelvis. Hepatomegaly with fat infiltration. Mildly thickened gallbladder. Mild surrounding free fluid Will treat with antibiotics GI panel pending Sulfasalazine treatment begin (4) Vomiting Status: Resolved Response to Treatment: Stable Problem Text: Zofran scheduled (5) DM2 (diabetes mellitus, type 2) Status: Chronic Response to Treatment: Stable Problem Text: Sliding scale (6) Hx of thyroid cancer Status: Chronic Response to Treatment: Stable Problem Text: stable continue home medications (7) DVT prophylaxis Status: Acute Response to Treatment: Stable Problem Text: scd teds Plan/VTE VTE Prophylaxis Ordered?: Yes Plan IVF: Discontinue Diet: Advance Medications: Change to PO Diagnostics: MRI Anticipated Discharge: Home VS, I&O, 24H, Fishbone Vital Signs/I&O Vital Signs Date Time Temp Pulse Resp B/P (MAP) Pulse Ox O2 Delivery O2 Flow Rate FiO2 12/12/16 09:10 123/58 12/12/16 08:00 99.0 71 18 95 Room Air I&O- Last 24 Hours up to 6 AM 12/12/16 06:00 Intake Total 2600 ml Output Total 1450 ml Balance 1150 ml Laboratory Data 24H LABS Laboratory Tests 2 12/11/16 11:51: Bedside Glucose (Misc Panel) 98 12/11/16 17:47: Bedside Glucose (Misc Panel) 102 12/12/16 00:22: Bedside Glucose (Misc Panel) 90 12/12/16 06:20: White Blood Count 8.6, Red Blood Count 3.92L, Hemoglobin 10.4L, Hematocrit 30.9L , Mean Corpuscular Volume 78.7L, Mean Corpuscular Hemoglobin 26.4L, Mean Corpuscular Hemoglobin Concent 33.6, Red Cell Distribution Width 13.5, Platelet Count 252, Neutrophils (%) (Auto) 62.4, Lymphocytes (%) (Auto) 28.4, Monocytes ( %) (Auto) 4.1, Eosinophils (%) (Auto) 2.4, Basophils (%) (Auto) 0.3, Neutrophils # (Auto) 5.4, Lymphocytes # (Auto) 2.7, Monocytes # (Auto) 0.4, Eosinophils # (Auto) 0.2, Basophils # (Auto) 0.0, Large Unclassified Cells % 2.4 , Large Unclassified Cells # 0.2, Anion Gap 7L, Glomerular Filtration Rate > 60.0, Blood Urea Nitrogen 3L, Creatinine 0.49L, Sodium Level 140, Potassium Level 3.3L, Chloride Level 108H, Carbon Dioxide Level 25, Calcium Level 8.1L, Lipase 343 12/12/16 06:31: Bedside Glucose (Misc Panel) 91 CBC/BMP Laboratory Tests 12/12/16 06:20 Red Blood Count 3.92 L, Mean Corpuscular Volume 78.7 L, Mean Corpuscular Hemoglobin 26.4 L, Mean Corpuscular Hemoglobin Concent 33.6, Red Cell Distribution Width 13.5, Neutrophils (%) (Auto) 62.4, Lymphocytes (%) (Auto) 28.4, Monocytes (%) (Auto) 4.1, Eosinophils (%) (Auto) 2.4, Basophils (%) (Auto ) 0.3, Neutrophils # (Auto) 5.4, Lymphocytes # (Auto) 2.7, Monocytes # (Auto) 0.4, Eosinophils # (Auto) 0.2, Basophils # (Auto) 0.0, Calcium Level 8.1 L Microbiology Microbiology 12/09/16 Blood Culture - Preliminary, Resulted No Growth after 72 hours. All specime... 12/09/16 Blood Culture - Preliminary, Resulted No Growth after 72 hours. All specime... 12/09/16 Gastrointestinal Tract Panel (PCR) - Final, Complete Campylobacter 12/09/16 Urine Culture - Final, Complete Juan J iLng MD Dec 12, 2016 10:48
[2016-12-12] MEDS: POTASSIUM CHLORIDE 10 MEQ SR TABLET PO SCH ×2 (11:14→21:40)
[2016-12-12 16:00] VITALS: BP 137/79
[2016-12-12] MEDS ORDERED: HumaLOG INSULIN (NovoLOG) PER UNIT SC SCH ×2 (17:30→21:00)
[2016-12-12] MEDS: CIPROFLOXACIN 500 MG TAB PO SCH (18:06)
[2016-12-12] MEDS: OMEPRAZOLE 20 MG CAP PO SCH (18:06)
[2016-12-12 20:01] VITALS: BP 149/91
[2016-12-13 00:59] VITALS: BP 124/62
[2016-12-13] MEDS: CIPROFLOXACIN 500 MG TAB PO SCH (06:07)
[2016-12-13] MEDS: LEVOTHYROXINE 100MCG TABLET (0.1MG) PO SCH (06:07)
[2016-12-13 07:04] LABS: BASO % 0.5 % (0.0-1.0); EOS # 0.2 K/mm3 (0.0-0.50); EOS % 2.4 % (0.0-3.0); LARGE UNSTAINED CELL # 0.2 K/mm3 (0.0-0.4); LARGE UNSTAINED CELL % 1.9 % (0.0-4.0); LYMPH # 2.4 K/mm3 (1.5-4.5); LYMPH % 21.9 % (24.0-44.0); MEAN CORPUSCULAR HEMOGLOBIN 26.3 pg (27.0-33.0); MEAN CORPUSCULAR HGB CONC 33.3 g/dl (32.0-36.5); MEAN CORPUSCULAR VOLUME 78.8 fl (80.0-96.0); MONO # 0.4 K/mm3 (0.0-0.8); MONO % 4.2 % (0.0-5.0); NEUTROPHILS % 69.1 % (36.0-66.0); PLATELET COUNT, AUTOMATED 303 k/mm3 (150-450); RED CELL DISTRIBUTION WIDTH 13.8 % (11.5-14.5)
[2016-12-13] MEDS ORDERED: HumaLOG INSULIN (NovoLOG) PER UNIT SC SCH (07:30)
[2016-12-13 07:39] LABS: ANION GAP 8 MEQ/L (8-16); BLOOD UREA NITROGEN 7 MG/DL (7-18); CALCIUM LEVEL 8.7 MG/DL (8.5-10.1); CARBON DIOXIDE LEVEL 26 MEQ/L (21-32); CHLORIDE LEVEL 109 MEQ/L (98-107); CREATININE FOR GFR 0.59 MG/DL (0.55-1.02); GLOMERULAR FILTRATION RATE > 60.0 (>60); GLUCOSE, FASTING 119 MG/DL (70-105); SODIUM LEVEL 143 MEQ/L (136-145)
[2016-12-13 08:00] VITALS: BP 120/63
[2016-12-13] MEDS ORDERED: CIPR-249 PO (08:00)
--- NOTE | 2016-12-13 22:48 | DSES ---
DATE OF ADMISSION: 12/09/2016 DATE OF DISCHARGE: 12/13/2016 REASON FOR ADMISSION: The patient, 36 years old followed per routine with Rafal at the [facility] presents with abdominal pain, diarrhea, CT findings included evidence of pancolitis. She had mildly thickened gallbladder and kidneys and had cholelithiasis. The gallbladder disease was a known problem for which she is planning surgery in the future. She had significant abdominal pain requiring narcotic analgesics contributing to need for hospitalization. Workup included gastrointestinal panel which revealed Campylobacter. Species identification was not done as part of our PCR base technique and neither are sensitivities done. The patient was treated with Cipro and because there are some species of the Campylobacter that are resistant to Cipro, she received a single dose of azithromycin 1000 mg to help ensure clearance of the organism. By the day before discharge her symptoms had nearly completely disappeared. She was no longer requiring medicine for nausea or pain control and her blood sugar for which she is treated with metformin was reasonably controlled with sliding-scale insulin. At the time of discharge, clinical status is excellent. She has no fevers. She has no abdominal pain and is keen to leave the hospital. DISCHARGE DIAGNOSES: 1. Campylobacter enteritis. 2. Diabetes mellitus type 2. 3. Hypothyroidism. PLAN: The patient discharged today. Followup with Jenna Lyles in 2 weeks. Medications will be Cipro 500 mg by mouth twice a day times 5 days. She is advised potential for tendinopathy and diarrhea, rash, etc. She may return to work tomorrow if she likes. She will resume her usual treatment for diabetes, which is metformin 750 mg by mouth twice a day and she will resume levothyroxine 200 mcg daily and lisinopril 10 mg daily for her chronic condition hypothyroidism and hypertension. Increase activity as tolerated. Encouraged controlled carbohydrate diet. Additional procedures performed during hospital stay included MRI. MR imaging was done to confirm that there was no inflammation of the pancreas during her hospital stay. She was observed to have mild elevations of lipase, which raised concern about pancreatitis; however, abdominal CT and abdominal MRI did not show evidence of pancreatitis and her amylase had returned to normal by the time Wednesday before discharge. Curiously, the Campylobacter infection is associated with mild elevations of lipase. Therefore, she did not have pancreatitis during this hospital stay just Campylobacter enteritis with severe abdominal pain requiring admission and subsequent treatment.
[2016-12-25] MEDS ORDERED: NORCOTAB PO (18:25)
[2016-12-25] MEDS ORDERED: IBUP-1022 PO (18:27)
== END 2016-12-13 09:20 | disposition home or self-care (01) | DRG 248 ==
LOC: M ED 01:31 → M ED INP 05:15 → M PED 09:45
PROVIDERS: ATTEND Family Medicine
DX: A04.5 Campylobacter enteritis (principal); E03.9 Hypothyroidism, unspecified; E11.9 Type 2 diabetes mellitus without complications; K80.20 Calculus of gallbladder without cholecystitis without obstruction; Z79.899 Other long term (current) drug therapy; Z88.5 Allergy status to narcotic agent; Z85.850 Personal history of malignant neoplasm of thyroid; K21.9 Gastro-esophageal reflux disease without esophagitis

== ENCOUNTER → 2016-12-17 | Outpatient (REF) | payer OTHER ==
[~2016-12-17] MED LIST changes: +CIPR-249 PO; +FERR1TAB8 PO; +IBUP-1022 PO; +METF750T PO; +ORTHTAB14 PO; +PATIENT COMMENT; +SYNT100T PO; +TYLE500T78 PO; +VITA1CAP40 PO
== END ==
LOC: M SFHCADAM 10:33
PROVIDERS: ATTEND Physician Assistant
DX: Z12.4 Encounter for screening for malignant neoplasm of cervix (principal)

== ENCOUNTER → 2016-12-25 | Day surgery (SDC) | payer OTHER ==
[~2016-12-25] VITALS: Ht 157.5 cm; Wt 108.9 kg
[~2016-12-25] MED LIST changes: +BUPIVACAINE/EPIN 0.25% 30 ML VIAL As Ordered ONE; +KETOROLAC 60 MG/2 ML VIAL (J1885) As Ordered ONE; +LR 1,000 ML IV ONE; +LR 1,000 ML IV SCH; +MIDAZOLAM INJ 2 MG/2 ML VIAL (J2250) As Ordered ONE; +NORCO, ANEXSIA 5/325MG TABLET (HYDROcodone/ACETAMINOPHEN) PO PRN; +ONDANSETRON 4MG/2ML VIAL (J2405) As Ordered ONE; +PROPOFOL 500 MG/50 ML VIAL As Ordered ONE; +ROCURONIUM BROMIDE 50 MG/5 ML VIAL/SYRINGE As Ordered ONE; +SCOPOLAMINE 1.5 MG TRANSDERMAL As Ordered ONE; +SCOPOLAMINE 1.5 MG TRANSDERMAL TOP ONE; +dexameTHASONE 4 MG/ML 1ML VIAL (J1100) As Ordered ONE; +fentaNYL 100 MCG/2 ML INJECTION (J3010) As Ordered ONE; +fentaNYL 100 MCG/2 ML INJECTION (J3010) IV PRN
[2016-12-25 10:57] LABS: CONTROL LINE UCG INT CTR LINE PRESENT
[2016-12-25 15:27] VITALS: BP 155/82
--- NOTE | 2016-12-27 07:29 | RO ---
DATE OF PROCEDURE: 12/25/2016 PREOPERATIVE DIAGNOSIS: Symptomatic cholelithiasis. POSTOPERATIVE DIAGNOSIS: Symptomatic cholelithiasis. PROCEDURE: Laparoscopic cholecystectomy. SURGEON: Dr. Anthony Díaz MUSEUM PREPARATOR: Dr. Haddad ANESTHESIA: General. ESTIMATED BLOOD LOSS: 5. COMPLICATIONS: None. INDICATIONS FOR PROCEDURE: The patient is a 36-year-old female who presents with persistent right upper quadrant abdominal pain and found to have symptomatic cholelithiasis. Recommendation was to proceed with laparoscopic possible open cholecystectomy. The risks and benefits of the procedure not limited to, but including bleeding, infection, hernia formation, damage to surrounding structures, and need for further surgery were discussed in detail with the patient. Informed consent was obtained and the procedure was planned. PROCEDURE: The patient was brought back to operating room six after sufficient sedation and the abdomen was sterilely prepped and draped. Next, a time-out was done to confirm proper patient and proper procedure. Following that, a stab incision was made in the left upper quadrant and Veress needle was inserted and the abdomen was insufflated to 15 mmHg. Next, a 5 mm supraumbilical incision was made. Then a 5 mm OptiView port was used to gain access to the abdomen. Once abdomen was entered, the Veress needle site was examined. There were no signs of any injury. A 10 mm port placed subxiphoid and two 5 mm ports in the right upper quadrant. Next the fundus of gallbladder was elevated up towards the right shoulder. The cystic duct and cystic artery were carefully dissected free with a combination of blunt and sharp dissection. The cystic duct and cystic artery were both clearly identified. They were both doubly clipped and cut. The gallbladder was then removed from gallbladder fossa using electrocautery and brought out through the subxiphoid port site in a 10 mm EndoCatch bag. Once the gallbladder was removed, the right upper quadrant was irrigated. There was a little bit of bleeding in the liver bed that was controlled with electrocautery. The abdomen was then desufflated. The skin incisions were closed with #4-0 Vicryl subcuticular sutures. The abdomen was cleaned and dried. Steri-Strips, 4x4 and tape were applied thus ending the procedure.
== END | disposition home or self-care (01) ==
LOC: M SDC 11:35
PROVIDERS: ATTEND Surgery
DX: K80.20 Calculus of gallbladder without cholecystitis without obstruction (principal); I10 Essential (primary) hypertension; E11.9 Type 2 diabetes mellitus without complications; Z79.899 Other long term (current) drug therapy; E03.9 Hypothyroidism, unspecified; K21.9 Gastro-esophageal reflux disease without esophagitis; D64.9 Anemia, unspecified

== ENCOUNTER 2017-01-10 19:01 | Emergency (ER) | payer OTHER ==
[~2017-01-10] VITALS: Ht 157.5 cm; Wt 105.4 kg
[~2017-01-10 19:01] MED LIST changes: -BUPIVACAINE/EPIN 0.25% 30 ML VIAL As Ordered ONE; -KETOROLAC 60 MG/2 ML VIAL (J1885) As Ordered ONE; -LR 1,000 ML IV ONE; -LR 1,000 ML IV SCH; -MIDAZOLAM INJ 2 MG/2 ML VIAL (J2250) As Ordered ONE; -NORCO, ANEXSIA 5/325MG TABLET (HYDROcodone/ACETAMINOPHEN) PO PRN; -ONDANSETRON 4MG/2ML VIAL (J2405) As Ordered ONE; -PROPOFOL 500 MG/50 ML VIAL As Ordered ONE; -ROCURONIUM BROMIDE 50 MG/5 ML VIAL/SYRINGE As Ordered ONE; -SCOPOLAMINE 1.5 MG TRANSDERMAL As Ordered ONE; -SCOPOLAMINE 1.5 MG TRANSDERMAL TOP ONE; -dexameTHASONE 4 MG/ML 1ML VIAL (J1100) As Ordered ONE; -fentaNYL 100 MCG/2 ML INJECTION (J3010) As Ordered ONE; -fentaNYL 100 MCG/2 ML INJECTION (J3010) IV PRN
[2017-01-10] MEDS ORDERED: KETOROLAC 30 MG/ML VIAL (J1885) IV ONE (20:15)
[2017-01-10] MEDS ORDERED: NS 1,000 ML IV ONE (20:15)
[2017-01-10] MEDS ORDERED: ONDANSETRON 4MG/2ML VIAL (J2405) IV ONE (20:15)
[2017-01-10 20:42] LABS: BASO # 0.1 K/mm3 (0.0-0.2); BASO % 0.4 % (0.0-1.0); EOS # 0.2 K/mm3 (0.0-0.50); LARGE UNSTAINED CELL # 0.2 K/mm3 (0.0-0.4); LYMPH # 3.2 K/mm3 (1.5-4.5); LYMPH % 14.3 % (24.0-44.0); MEAN CORPUSCULAR HEMOGLOBIN 26.1 pg (27.0-33.0); MEAN CORPUSCULAR HGB CONC 32.8 g/dl (32.0-36.5); MEAN CORPUSCULAR VOLUME 79.7 fl (80.0-96.0); MONO # 0.5 K/mm3 (0.0-0.8); MONO % 2.5 % (0.0-5.0); NEUTROPHILS # 16.6 K/mm3 (1.8-7.7); NEUTROPHILS % 80.9 % (36.0-66.0); PLATELET COUNT, AUTOMATED 385 k/mm3 (150-450); WHITE BLOOD COUNT 20.6 K/mm3 (4.0-10.0)
[2017-01-10 21:04] LABS: ALBUMIN 3.4 GM/DL (3.2-5.2); ALBUMIN/GLOBULIN RATIO 0.87 (1.00-1.93); ALKALINE PHOSPHATASE 58 U/L (45-117); ALT/SGPT 35 U/L (12-78); AMYLASE 38 U/L (25-115); ANION GAP 10 MEQ/L (8-16); AST/SGOT 28 U/L (15-37); BILIRUBIN,DIRECT 0.2 MG/DL (0.0-0.2); BILIRUBIN,TOTAL 0.6 MG/DL (0.2-1.0); BLOOD UREA NITROGEN 11 MG/DL (7-18); CARBON DIOXIDE LEVEL 27 MEQ/L (21-32); CHLORIDE LEVEL 104 MEQ/L (98-107); GLOMERULAR FILTRATION RATE > 60.0 (>60); GLUCOSE, FASTING 137 MG/DL (70-105); POTASSIUM SERUM 4.2 MEQ/L (3.5-5.1); SODIUM LEVEL 141 MEQ/L (136-145); TOTAL PROTEIN 7.3 GM/DL (6.4-8.2)
--- NOTE | 2017-01-10 22:20 | REPUSA ---
HISTORY: Recent cholecystectomy. TECHNIQUE: Right upper quadrant ultrasound. COMPARISON: December 09, 2016 CT abdomen. ULTRASOUND RUQ: Liver: No intrahepatic ductal dilation. Fatty hepatic infiltration. Gallbladder: Cholecystectomy. Common bile duct: Nondistended at 5 mm. Pancreas: Poorly visualized due to overlying bowel gas. No pancreatic duct dilation. Right kidney: 12 x 6.7 x 4.5 cm No stones or hydronephrosis. Aorta: Normal caliber. Peritoneum: No free fluid. IMPRESSION: Fatty hepatic infiltration. Cholecystectomy without evidence of complication.
[2017-01-10 22:25] VITALS: BP 136/61
[2017-01-10] MEDS ORDERED: ZOFR4TAB3 PO (22:34)
== END 2017-01-10 22:56 | disposition home or self-care (01) ==
LOC: M ED 19:01
DX: D72.829 Elevated white blood cell count, unspecified (principal); Z90.49 Acquired absence of other specified parts of digestive tract; R10.13 Epigastric pain; R11.2 Nausea with vomiting, unspecified; E11.9 Type 2 diabetes mellitus without complications; E03.9 Hypothyroidism, unspecified; K76.0 Fatty (change of) liver, not elsewhere classified; Z79.84 Long term (current) use of oral hypoglycemic drugs; Z79.3 Long term (current) use of hormonal contraceptives; Z79.899 Other long term (current) drug therapy; Z88.5 Allergy status to narcotic agent
CPT/HCPCS: 76705; 80048; 80076; 81001; 81025; 82150; 83690; 85025; 86140; 96374; 96375; 99283; J1885; J2405

== ENCOUNTER → 2017-07-20 | Outpatient (REF) | payer OTHER ==
[2017-07-20 12:36] LABS: HEMOGLOBIN 11.1 g/dl (12.0-16.0); MEAN CORPUSCULAR HEMOGLOBIN 24.7 pg (27.0-33.0); MEAN CORPUSCULAR HGB CONC 30.8 g/dl (32.0-36.5); MEAN CORPUSCULAR VOLUME 80.2 fl (80.0-96.0); PLATELET COUNT, AUTOMATED 327 10^3/uL (150-450); RED BLOOD COUNT 4.49 10^6/uL (4.00-5.40); RED CELL DISTRIBUTION WIDTH 14.9 % (11.5-14.5); WHITE BLOOD COUNT 9.9 10^3/uL (4.0-10.0)
[2017-07-20 13:02] LABS: TOTAL 25(OH) VITAMIN D 19.9 NG/ML (30.0-100.0)
[2017-07-20 13:07] LABS: ALBUMIN 3.3 GM/DL (3.2-5.2); ALBUMIN/GLOBULIN RATIO 0.92 (1.00-1.93); ALKALINE PHOSPHATASE 57 U/L (45-117); ALT/SGPT 41 U/L (12-78); ANION GAP 10 MEQ/L (8-16); AST/SGOT 54 U/L (7-37); BILIRUBIN,TOTAL 0.2 MG/DL (0.2-1.0); BLOOD UREA NITROGEN 10 MG/DL (7-18); CALCIUM LEVEL 8.5 MG/DL (8.5-10.1); CARBON DIOXIDE LEVEL 28 MEQ/L (21-32); CHLORIDE LEVEL 104 MEQ/L (98-107); CREATININE FOR GFR 0.57 MG/DL (0.55-1.30); FREE T4 1.23 NG/DL (0.76-1.46); GLOMERULAR FILTRATION RATE > 60.0 (>60); GLUCOSE, FASTING 151 MG/DL (70-100); SODIUM LEVEL 142 MEQ/L (136-145); TOTAL PROTEIN 6.9 GM/DL (6.4-8.2)
[2017-07-20 13:09] LABS: ESTIMATED AVERAGE GLUCOSE 166 MG/DL (60-110); HEMOGLOBIN A1c 7.4 %
== END ==
LOC: M SFHCADAM 07:58
DX: E03.9 Hypothyroidism, unspecified (principal); E11.9 Type 2 diabetes mellitus without complications; I10 Essential (primary) hypertension; D50.9 Iron deficiency anemia, unspecified; E55.9 Vitamin D deficiency, unspecified; K21.9 Gastro-esophageal reflux disease without esophagitis
CPT/HCPCS: 84443

== ENCOUNTER → 2017-09-27 | Outpatient (REF) | payer OTHER | LOC: M SFHCADAM 18:39 | DX: R30.0 Dysuria (principal) | CPT/HCPCS: 87086 ==

== ENCOUNTER → 2018-01-27 | Outpatient (REF) | payer OTHER | LOC: M LAB REF 19:43 | DX: R11.2 Nausea with vomiting, unspecified (principal) | CPT/HCPCS: 87086 ==

== ENCOUNTER → 2018-02-15 | Outpatient (REF) | payer OTHER | LOC: M LAB REF 16:55 | DX: R30.0 Dysuria (principal) | CPT/HCPCS: 87086 ==

== ENCOUNTER 2018-03-01 05:00 | Emergency (ER) | payer OTHER ==
[2018-03-01] MEDS: NS 1,000 ML IV (05:33)
[2018-03-01 05:34] LABS: BASO # 0.1 10^3/uL (0.0-0.2); BASO % 0.3 % (0.0-1.0); EOS # 0.2 10^3/uL (0.0-0.50); EOS % 1.4 % (0.0-3.0); HEMATOCRIT 36.2 % (36.0-47.0); HEMOGLOBIN 11.2 g/dl (12.0-15.5); IMMATURE GRANULOCYTE % 0.4 % (0-3.0); LYMPH # 3.3 10^3/uL (1.5-4.5); LYMPH % 22.5 % (24.0-44.0); MEAN CORPUSCULAR HEMOGLOBIN 23.2 pg (27.0-33.0); MEAN CORPUSCULAR HGB CONC 30.9 g/dl (32.0-36.5); MEAN CORPUSCULAR VOLUME 75.1 fl (80.0-96.0); MONO # 0.8 10^3/uL (0.0-0.8); MONO % 5.6 % (0.0-5.0); NEUTROPHILS # 10.1 10^3/uL (1.8-7.7); NEUTROPHILS % 69.8 % (36.0-66.0); PLATELET COUNT, AUTOMATED 382 10^3/uL (150-450); RED BLOOD COUNT 4.82 10^6/uL (4.00-5.40); RED CELL DISTRIBUTION WIDTH 16.6 % (11.5-14.5); WHITE BLOOD COUNT 14.4 10^3/uL (4.0-10.0)
[2018-03-01 05:55] LABS: CONTROL LINE HCG INT CTR LINE PRESENT; HCG, SERUM QUALITATIVE NEGATIVE (NEGATIVE)
[2018-03-01 06:01] LABS: ALBUMIN 3.4 GM/DL (3.2-5.2); ALBUMIN/GLOBULIN RATIO 0.89 (1.00-1.93); ALKALINE PHOSPHATASE 52 U/L (45-117); ALT/SGPT 18 U/L (12-78); ANION GAP 9 MEQ/L (8-16); AST/SGOT 13 U/L (7-37); BILIRUBIN,DIRECT < 0.1 MG/DL (0.0-0.2); BILIRUBIN,TOTAL 0.3 MG/DL (0.2-1.0); BLOOD UREA NITROGEN 12 MG/DL (7-18); CALCIUM LEVEL 8.8 MG/DL (8.5-10.1); CARBON DIOXIDE LEVEL 24 MEQ/L (21-32); CHLORIDE LEVEL 109 MEQ/L (98-107); CREATININE FOR GFR 0.72 MG/DL (0.55-1.30); GLOMERULAR FILTRATION RATE > 60.0 (>60); GLUCOSE, FASTING 118 MG/DL (70-100); LIPASE 133 U/L (73-393); POTASSIUM SERUM 4.1 MEQ/L (3.5-5.1); SODIUM LEVEL 142 MEQ/L (136-145); TOTAL PROTEIN 7.2 GM/DL (6.4-8.2)
[2018-03-01] MEDS: ONDANSETRON 4MG/2ML VIAL (J2405) IV (06:24)
[2018-03-01] MEDS: KETOROLAC 30 MG/ML VIAL (J1885) IV (06:25)
== END 2018-03-01 07:40 | disposition home or self-care (01) ==
LOC: M ED 05:00
DX: A08.4 Viral intestinal infection, unspecified (principal); Z79.3 Long term (current) use of hormonal contraceptives; Z79.899 Other long term (current) drug therapy; Z88.5 Allergy status to narcotic agent
CPT/HCPCS: J2405

== ENCOUNTER 2018-03-25 21:40 | Emergency (ER) | payer OTHER ==
[2018-03-25] MEDS: IBUPROFEN 600 MG TAB PO (22:00)
== END 2018-03-25 23:33 | disposition home or self-care (01) ==
LOC: M ED 21:40
DX: S93.402A Sprain of unspecified ligament of left ankle, initial encounter (principal); X50.1XXA Overexertion from prolonged static or awkward postures, initial encounter; Y92.531 Health care provider office as the place of occurrence of the external cause; E11.9 Type 2 diabetes mellitus without complications; I10 Essential (primary) hypertension; E78.5 Hyperlipidemia, unspecified; K21.9 Gastro-esophageal reflux disease without esophagitis; E03.9 Hypothyroidism, unspecified; D64.9 Anemia, unspecified; Z88.5 Allergy status to narcotic agent; Z79.899 Other long term (current) drug therapy; Z79.84 Long term (current) use of oral hypoglycemic drugs
CPT/HCPCS: 73610

== ENCOUNTER 2018-03-31 12:05 | Emergency (ER) | payer OTHER ==
[2018-03-31] MEDS: IBUPROFEN 800 MG TAB PO (12:28)
== END 2018-03-31 13:18 | disposition home or self-care (01) ==
LOC: M ED 12:05
DX: S93.402A Sprain of unspecified ligament of left ankle, initial encounter (principal); X50.9XXA Other and unspecified overexertion or strenuous movements or postures, initial encounter; Y92.89 Other specified places as the place of occurrence of the external cause; Y99.0 Civilian activity done for income or pay; I10 Essential (primary) hypertension; E11.9 Type 2 diabetes mellitus without complications; K21.9 Gastro-esophageal reflux disease without esophagitis; D64.9 Anemia, unspecified; Z79.899 Other long term (current) drug therapy; Z79.84 Long term (current) use of oral hypoglycemic drugs; Z79.890 Hormone replacement therapy
CPT/HCPCS: 73610

== ENCOUNTER → 2018-03-31 | Outpatient (REF) | payer OTHER ==
[2018-03-31 13:20] LABS: CREATININE, URINE 33.9 MG/DL; ESTIMATED AVERAGE GLUCOSE 120 MG/DL (60-110); HEMOGLOBIN A1c 5.8 %; MALB URINE SIEMENS 16.6 MG/L
[2018-03-31 13:36] LABS: ALBUMIN 3.5 GM/DL (3.2-5.2); ALBUMIN/GLOBULIN RATIO 1.13 (1.00-1.93); ALKALINE PHOSPHATASE 60 U/L (45-117); ALT/SGPT 23 U/L (12-78); ANION GAP 10 MEQ/L (8-16); AST/SGOT 12 U/L (7-37); BILIRUBIN,TOTAL 0.3 MG/DL (0.2-1.0); BLOOD UREA NITROGEN 10 MG/DL (7-18); CALCIUM LEVEL 8.9 MG/DL (8.5-10.1); CARBON DIOXIDE LEVEL 26 MEQ/L (21-32); CHLORIDE LEVEL 107 MEQ/L (98-107); CREATININE FOR GFR 0.65 MG/DL (0.55-1.30); FREE T4 1.36 NG/DL (0.76-1.46); GLOMERULAR FILTRATION RATE > 60.0 (>60); GLUCOSE, FASTING 88 MG/DL (70-100); POTASSIUM SERUM 4.7 MEQ/L (3.5-5.1); SODIUM LEVEL 143 MEQ/L (136-145); THYROID STIMULATING HORMONE 0.721 uIU/ML (0.358-3.740); TOTAL 25(OH) VITAMIN D 31.1 NG/ML (30.0-100.0); TOTAL PROTEIN 6.6 GM/DL (6.4-8.2)
== END ==
LOC: M SFHCADAM 08:53
DX: E11.9 Type 2 diabetes mellitus without complications (principal); K21.9 Gastro-esophageal reflux disease without esophagitis; I10 Essential (primary) hypertension; E03.9 Hypothyroidism, unspecified; E55.9 Vitamin D deficiency, unspecified
CPT/HCPCS: 84443

== ENCOUNTER → 2018-05-06 | Outpatient (REF) | payer OTHER | LOC: M LAB REF 17:24 | DX: J02.9 Acute pharyngitis, unspecified (principal) | CPT/HCPCS: 87081 ==

== ENCOUNTER → 2018-08-08 | Outpatient (CLI) | payer OTHER ==
[~2018-08-08] MED LIST changes: +GARC500T PO; +ORTH1TAB16 PO; -ORTHTAB14 PO; +STEG5TAB PO; -VITA1CAP40 PO; +VITA50005 PO; +ZOFR4TAB14 PO; -ZOFR4TAB3 PO
[2018-08-08 12:57] LABS: BASO # 0.1 10^3/uL (0.0-0.2); BASO % 0.5 % (0.0-1.0); EOS # 0.2 10^3/uL (0.0-0.50); EOS % 1.6 % (0.0-3.0); HEMATOCRIT 34.2 % (36.0-47.0); HEMOGLOBIN 11.1 g/dl (12.0-15.5); LYMPH # 2.6 10^3/uL (1.5-4.5); MEAN CORPUSCULAR HEMOGLOBIN 25.3 pg (27.0-33.0); MEAN CORPUSCULAR HGB CONC 32.5 g/dl (32.0-36.5); MEAN CORPUSCULAR VOLUME 77.9 fl (80.0-96.0); MONO # 0.5 10^3/uL (0.0-0.8); MONO % 4.9 % (0.0-5.0); NEUTROPHILS # 7.3 10^3/uL (1.8-7.7); NEUTROPHILS % 68.3 % (36.0-66.0); PLATELET COUNT, AUTOMATED 280 10^3/uL (150-450); RED BLOOD COUNT 4.39 10^6/uL (4.00-5.40); WHITE BLOOD COUNT 10.7 10^3/uL (4.0-10.0)
[2018-08-08 13:23] LABS: TOTAL PROTEIN,RANDOM URINE 31.8 MG/DL (0.0-12.0)
[2018-08-08 13:36] LABS: HEMOGLOBIN A1c 5.8 %
[2018-08-08 13:55] LABS: ALT/SGPT 15 U/L (12-78); BILIRUBIN,TOTAL 0.4 MG/DL (0.2-1.0); CREATININE FOR GFR 0.51 MG/DL (0.55-1.30); FREE T4 1.25 NG/DL (0.76-1.46); GLOMERULAR FILTRATION RATE > 60.0 (>60); LDH LACTATE DEHYDROGENASE 149 U/L (84-246); URIC ACID 3.1 MG/DL (2.6-6.0)
[2018-08-08 13:56] LABS: RUBELLA IgG QUALITATIVE IMMUNE (IMMUNE)
[2018-08-08 14:24] LABS: HEPATITIS C VIRUS ABY INDEX < 0.0 INDEX (<0.8)
[2018-08-08 14:25] LABS: HIV 1&2 SCREEN CENTAUR NEGATIVE (NEGATIVE)
[2018-08-08 14:51] LABS: CHLAMYDIA DNA AMPLIFICATION NEGATIVE (NEGATIVE); GC DNA AMPLIFICATION NEGATIVE (NEGATIVE)
== END ==
LOC: M LAB 11:59
PROVIDERS: ATTEND Obstetrics & Gynecology
DX: Z34.81 Encounter for supervision of other normal pregnancy, first trimester (principal); Z3A.08 8 weeks gestation of pregnancy

== ENCOUNTER → 2018-08-18 | Outpatient (REF) | payer OTHER | LOC: M LAB REF 09:12 | PROVIDERS: ATTEND Physician Assistant | DX: A08.4 Viral intestinal infection, unspecified (principal) ==

== ENCOUNTER 2018-08-22 22:02 | Emergency (ER) | payer OTHER ==
[~2018-08-22] VITALS: Ht 157.5 cm; Wt 97.2 kg
[2018-08-23 00:11] LABS: BASO # 0.1 10^3/uL (0.0-0.2); BASO % 0.5 % (0.0-1.0); EOS # 0.2 10^3/uL (0.0-0.50); EOS % 1.5 % (0.0-3.0); HEMATOCRIT 36.2 % (36.0-47.0); HEMOGLOBIN 11.7 g/dl (12.0-15.5); LYMPH # 3.5 10^3/uL (1.5-4.5); LYMPH % 24.8 % (24.0-44.0); MEAN CORPUSCULAR HEMOGLOBIN 25.6 pg (27.0-33.0); MEAN CORPUSCULAR HGB CONC 32.3 g/dl (32.0-36.5); MEAN CORPUSCULAR VOLUME 79.2 fl (80.0-96.0); MONO # 0.8 10^3/uL (0.0-0.8); MONO % 5.6 % (0.0-5.0); NEUTROPHILS # 9.5 10^3/uL (1.8-7.7); PLATELET COUNT, AUTOMATED 305 10^3/uL (150-450); RED BLOOD COUNT 4.57 10^6/uL (4.00-5.40); WHITE BLOOD COUNT 14.2 10^3/uL (4.0-10.0)
[2018-08-23 00:21] LABS: INR 0.94; PROTHROMBIN TIME 12.7 SECONDS (12.1-14.4)
[2018-08-23 00:22] LABS: PARTIAL THROMBOPLASTIN TIME 28.8 SECONDS (25.4-37.6)
[2018-08-23 00:41] LABS: ALBUMIN 3.2 GM/DL (3.2-5.2); ALT/SGPT 14 U/L (12-78); BILIRUBIN,DIRECT < 0.1 MG/DL (0.0-0.2); BILIRUBIN,TOTAL 0.2 MG/DL (0.2-1.0); BLOOD UREA NITROGEN 11 MG/DL (7-18); CALCIUM LEVEL 8.4 MG/DL (8.5-10.1); CARBON DIOXIDE LEVEL 24 MEQ/L (21-32); CHLORIDE LEVEL 110 MEQ/L (98-107); CPK CREATINE PHOSPHOKINASE 94 U/L (26-192); FREE T4 1.27 NG/DL (0.76-1.46); GLOMERULAR FILTRATION RATE > 60.0 (>60); GLUCOSE, FASTING 96 MG/DL (70-100); MAGNESIUM LEVEL 1.9 MG/DL (1.8-2.4); MB/CK RELATIVE INDEX 1.49 (< OR =4); PHOSPHORUS LEVEL 4.2 MG/DL (2.5-4.9); POTASSIUM SERUM 4.2 MEQ/L (3.5-5.1); SODIUM LEVEL 141 MEQ/L (136-145); TOTAL PROTEIN 6.4 GM/DL (6.4-8.2); TROPONIN I 0.02 NG/ML (< 0.10)
[2018-08-23 02:00] VITALS: BP 110/60
[2018-08-23 02:00] LABS: D-DIMER QUANT 450.71 ng/ml (<500)
--- NOTE | 2018-08-23 08:56 | ECGEPIP ---
Stationary ECG Study [facility] - ED Test Date: 2018-08-22 Pat Name: ONEIDA MILAN Department: Room: - Gender: F Tourist Guide: [facility] 1980 Requested By: CHENTE Fitzgerald PA-C Order Number: [id number] Reading MD: Rony Polo Measurements Intervals [place] Rate: 79 P: 50 MT: 132 QRS: 55 QRSD: 102 T: 21 QT: 375 QTc: 432 Interpretive Statements SINUS RHYTHM INCOMPLETE RIGHT BUNDLE BRANCH BLOCK NSTTW ABNORMALITIES SIMILAR TO 12/02/16 Electronically Signed On 08-23-2018 8:56:05 EDT by Rony Polo
== END 2018-08-23 02:38 | disposition home or self-care (01) ==
LOC: M ED 22:02
DX: R00.2 Palpitations (principal); I45.19 Other right bundle-branch block; E11.9 Type 2 diabetes mellitus without complications; I10 Essential (primary) hypertension; D64.9 Anemia, unspecified; Z85.850 Personal history of malignant neoplasm of thyroid; Z79.84 Long term (current) use of oral hypoglycemic drugs; Z79.899 Other long term (current) drug therapy; Z88.5 Allergy status to narcotic agent

== ENCOUNTER → 2018-09-14 | Outpatient (REF) | payer OTHER ==
[~2018-09-14] MED LIST changes: +HYDR-3715 PO; -NORCOTAB PO
== END ==
LOC: M LAB REF 17:07
PROVIDERS: ATTEND Obstetrics & Gynecology
DX: O24.112 Pre-existing type 2 diabetes mellitus, in pregnancy, second trimester (principal)

== ENCOUNTER → 2018-09-27 | Outpatient (CLI) | payer OTHER ==
--- NOTE | 2018-09-28 07:34 | REP ---
OB ULTRASOUND: Real-time sonographic evaluation of the gravid uterus is performed. There is a single living intrauterine gestation. Estimated gestational age 18 weeks 2 days, EDC 02/26/2019. Today's measurements indicate appropriate growth. BPD 38 mm = 17 weeks 4 days, 24th percentile HC 151 mm = 18 weeks 1 day, 45th percentile AC 124 mm = 18 weeks 0 days, 44th percentile Femur length 25 mm = 17 weeks 4 days, 28th percentile HC/AC ratio 1.22 within normal range. Estimated weight 213 grams, 30th percentile. Cervix is closed and measures 5.4 cm in length. heart rate 138 beats per minute. SEEN/GROSSLY UNREMARKABLE Lateral ventricles Yes there is a tiny right choroid plexus cyst Posterior fossa Yes Upper lip No Four-chamber heart Yes LVOT Yes RVOT No Stomach Yes Cord insertion Yes Three vessel cord Yes Kidneys Yes There is mild left hydronephrosis with AP diameter of the renal pelvis 8 mm. Bladder Yes Spine No position: Transverse with head toward the maternal left side. Placenta: Fundal and grade 0 with no previa or abruption. Amniotic fluid: Within normal limits. Electronically Signed by Anthony Schuler MD 09/28/2018 10:35 A
== END ==
LOC: M RAD 14:16
PROVIDERS: ATTEND Obstetrics & Gynecology
DX: O24.112 Pre-existing type 2 diabetes mellitus, in pregnancy, second trimester (principal); Z3A.18 18 weeks gestation of pregnancy

== ENCOUNTER → 2018-10-12 | Outpatient (CLI) | payer OTHER ==
[~2018-10-12] MED LIST changes: +ORTH1TAB15 PO; -ORTH1TAB16 PO
--- NOTE | 2018-10-12 16:34 | REP ---
Obstetric sonography: History: Supervision of , followup anatomy. Comparison study September 27, 2018. Findings: Scanning through the gravid uterus demonstrates a viable single intrauterine gestation in a breech lie. motion is observed and heart rate is recorded at 133 beats per minute. A posterior fundal grade 1 placenta is seen without evidence of previa or abruption. Amniotic fluid is subjectively normal. Closed cervical length measures 6.7 cm viewed transabdominally. No extrauterine abnormalities observed. There has been appropriate interval growth. gender is felt to be male. Today's study demonstrates bilateral renal hydronephrosis. The left renal pelvis measures 13 mm in AP dimension and the right 7 mm in AP dimension. On the study dated September 27, the left renal pelvis measured 8 mm. No other abnormality is seen. The following additional anatomic structures are identified today and felt to be unremarkable: cranium, choroid plexus, cavum, cerebellum and posterior fossa, face and profile, lungs, four-chamber heart with right ventricular outflow tract view, diaphragm, left-sided stomach, abdominal wall cord insertion, three-vessel cord, spine, urinary bladder and upper and lower extremities. Biometry chart: BPD 4.5 cm = 19 weeks 4 days HC 17.0 cm = 19 weeks 4 days AC 15.9 cm = 21 weeks 0 days FL 3.2 cm = 19 weeks 6 days HL 2.8 cm = 19 weeks 0 days HC/AC ratio normal 1.07. Cephalic index normal 0.73. Estimated weight 348 grams, 0 pounds 12 ounces, 44th percentile for 20 weeks 3 days. Impression: Viable single intrauterine gestation at 19 weeks 6 days by today's composite criteria. Expected gestational age estimate based on prior sonography is 20 weeks 0 days, LOUISA by prior sonography 03/01/2019. In conjunction with the prior study, anatomic survey is felt to be complete. However, bilateral renal hydronephrosis is seen; left moderate to severe, and right mild. Followup OB sonography suggested regarding this. Fetus is male. urinary bladder does not appear dilated. The hydronephrosis is bilaterally more pronounced than it was on the recent prior study of September 27. medicine referral should be considered. Electronically Signed by Carlos Johansen MD 10/12/2018 05:03 P
== END ==
LOC: M RAD 14:52
PROVIDERS: ATTEND Obstetrics & Gynecology
DX: O24.112 Pre-existing type 2 diabetes mellitus, in pregnancy, second trimester (principal); Z3A.19 19 weeks gestation of pregnancy

== ENCOUNTER → 2018-11-29 | Outpatient (CLI) | payer OTHER ==
--- NOTE | 2018-11-29 14:09 | REP ---
Obstetric ultrasonography follow up of the hydronephrosis identified on prior studies.: On the study today there is severe left renal hydronephrosis with the AP diameter of the left renal pelvis measuring 17.6 mm. There is mild right renal hydronephrosis with t the AP diameter of the right renal pelvis measuring 6.9 mm. The bladder is moderately distended with fluid measuring 17 mm transverse diameter. The following anatomic structures are identified and are unremarkable: Cranium, cavum septum pellucidum, cerebellum, lungs, four-chamber heart, cardiac right and left outflow tracts, diaphragm, stomach, cord insertion, three-vessel cord, bladder and spine. Suboptimally demonstrated today are: Choroid plexus colon and 09/27/2018. there was a right choroid plexus cyst. The choroid plexus are not adequately demonstrated on 10/12/2018 and are not adequately demonstrated today. facial features: These are not optimally demonstrated today but were optimally demonstrated previously and were unremarkable. Lower extremities: Not optimally demonstrated today but were optimally demonstrated previously and were unremarkable. There is a single intrauterine gestation in a transverse lie with head to the maternal right. There is movement and cardiac activity. heart rate is 126 beats per minute. The placenta is anterior. There is no placenta previa or abruptio. Placenta is grade zero. The amniotic fluid volume subjectively is normal. Cervix measures 4.8 cm length. The gestational age by today's ultrasound is 26 weeks 5 days/LOUISA 03/02/2019. Gestational age by the first ultrasound is 25 weeks 6 days/LOUISA of 2018. Gestational age by LMP is 27 weeks 2 days/LOUISA 02/26/2019. weight is 993 grams/2 pounds, 3 ounces. This is the 32nd percentile for 27 weeks 2 days. Impression: Persisting severe left renal hydronephrosis. Persisting mild right renal hydronephrosis. The The right choroid plexus cyst on prior studies of 09/27 2018. The choroid plexus are not adequately demonstrated on 10/12/2018 or on the study today. Consider referral to a a dedicated center for further evaluation of the hydronephrosis. Electronically Signed by Anthony Kelly MD 11/29/2018 02:01 P
== END ==
LOC: M RAD 12:37
PROVIDERS: ATTEND Obstetrics & Gynecology
DX: O10.012 Pre-existing essential hypertension complicating pregnancy, second trimester (principal); Z3A.27 27 weeks gestation of pregnancy

== ENCOUNTER → 2018-12-05 | Outpatient (CLI) | payer OTHER ==
[~2018-12-05] MED LIST changes: +FLUO20CA19 PO; +JENC0.35 PO; +LABE20TAB PO; +LEVO2TA PO; -METF750T PO; +METF750T36 PO; -OMEP40CA2 PO; +OMEP40CA97 PO; -ORTH1TAB15 PO; +ORTH1TAB8 PO; +PRENTAB53 PO; +SYNT75TA PO
[2018-12-05 18:00] LABS: BASO # 0.1 10^3/uL (0.0-0.2); BASO % 0.5 % (0.0-1.0); EOS # 0.1 10^3/uL (0.0-0.50); EOS % 0.8 % (0.0-3.0); HEMATOCRIT 35.4 % (36.0-47.0); HEMOGLOBIN 11.6 g/dl (12.0-15.5); LYMPH # 2.4 10^3/uL (1.5-4.5); LYMPH % 18.3 % (24.0-44.0); MEAN CORPUSCULAR HEMOGLOBIN 28.4 pg (27.0-33.0); MEAN CORPUSCULAR HGB CONC 32.8 g/dl (32.0-36.5); MEAN CORPUSCULAR VOLUME 86.6 fl (80.0-96.0); MONO # 0.7 10^3/uL (0.0-0.8); MONO % 5.4 % (0.0-5.0); NEUTROPHILS # 9.7 10^3/uL (1.8-7.7); NEUTROPHILS % 73.8 % (36.0-66.0); PLATELET COUNT, AUTOMATED 224 10^3/uL (150-450); RED BLOOD COUNT 4.09 10^6/uL (4.00-5.40); WHITE BLOOD COUNT 13.2 10^3/uL (4.0-10.0)
[2018-12-05 18:12] LABS: FREE T4 0.99 NG/DL (0.76-1.46); THYROID STIMULATING HORMONE 4.74 uIU/ML (0.358-3.740)
== END ==
LOC: M WUC 14:32
PROVIDERS: ATTEND Obstetrics & Gynecology
DX: O10.012 Pre-existing essential hypertension complicating pregnancy, second trimester (principal); Z3A.00 Weeks of gestation of pregnancy not specified

== ENCOUNTER → 2018-12-14 | Outpatient (CLI) | payer OTHER ==
[~2018-12-14] MED LIST changes: -FLUO20CA19 PO; -JENC0.35 PO; -LABE20TAB PO; -LEVO2TA PO; +METF750T PO; -METF750T36 PO; +OMEP40CA2 PO; -OMEP40CA97 PO; -PRENTAB53 PO; -SYNT75TA PO
--- NOTE | 2018-12-14 21:30 | REP ---
Clinical: well-being Comparison: 11/29/2018 . Findings: Examination demonstrates a single live intrauterine in transverse (head to maternal left) presentation. motion is identified by technologist. Placenta is noted posterior/fundal and grade one without evidence for placenta previa or abruption. Amniotic fluid volume is normal. Cervix measures 4.2 cm in length and appears closed. No evidence for nuchal cord. Gestational age by LMP 29 weeks 3 days with LOUISA 02/26/2019 . FHR equals 130 beats per minute. Biophysical profile score: 8/8 Amniotic fluid index: 18.2 cm Umbilical cord SD ratio: 3.50 Renal hydronephrosis noted. Impression: 1. Single live advanced gestation in transverse lie. Biophysical profile score and amniotic fluid volume are normal. 2. Bilateral renal hydronephrosis (left greater than right). Left renal pelvis measures 19.9 mm width; right renal pelvis measures 9.2 mm width. Electronically Signed by Harris Veras MD 12/14/2018 09:22 P
== END ==
LOC: M RAD 14:38
PROVIDERS: ATTEND Obstetrics & Gynecology
DX: O10.013 Pre-existing essential hypertension complicating pregnancy, third trimester (principal); Z3A.29 29 weeks gestation of pregnancy

== ENCOUNTER → 2018-12-21 | Outpatient (CLI) | payer OTHER ==
--- NOTE | 2018-12-21 16:35 | REP ---
OB ULTRASOUND, BIOPHYSICAL PROFILE: Real-time sonographic evaluation of the gravid uterus is performed. There is a single living intrauterine gestation. The estimated gestational age reportedly 30 weeks 3 days, EDC 02/26/2019. Cervix is closed and measures 4.3 cm in length. heart rate 127 beats per minute. Amniotic fluid within normal limits. SADIA 17.8 within normal range of 8.9 to 23.6. Biophysical profile score 8/8. SD ratio 3.01 and RI 0.67 within normal range. position is traverse with head towards the maternal left side. The placenta is posterior and grade 1 with no previa or abruption. There is again bilateral hydronephrosis unchanged, AP diameter of the left renal pelvis is 20 mm and right renal pelvis 10 mm. Bladder is distended. No bladder emptying was seen for a scanning time of 30 minutes. Electronically Signed by Anthony Schuler MD 12/24/2018 06:30 P
== END ==
LOC: M RAD 13:34
PROVIDERS: ATTEND Obstetrics & Gynecology
DX: Z36.89 Encounter for other specified antenatal screening (principal); Z3A.30 30 weeks gestation of pregnancy

== ENCOUNTER → 2018-12-28 | Outpatient (CLI) | payer OTHER ==
--- NOTE | 2018-12-29 04:29 | REP ---
Clinical: well-being Comparison: 12/21/2018 . Findings: Examination demonstrates a single live intrauterine in transverse (head to maternal left) presentation. motion is identified by technologist. Placenta is noted posterior and grade one without evidence for placenta previa or abruption. Amniotic fluid volume is normal. Cervix measures 4.5 cm in length and appears closed. No evidence for nuchal cord. Gestational age by LMP 31 weeks 3 days with LOUISA 02/24/2019 . Gestational age by current measurements 32 weeks to the with LOUISA 02/20/2019 . FHR equals 139 beats per minute. Estimated weight 1930 grams ( 58th percentile). Amniotic fluid index: 15.4 cm Umbilical cord SD ratio: 2.70 Biophysical profile score: 8/8 Impression: Single live intrauterine in transverse lie demonstrating appropriate interval growth. Biophysical profile score and amniotic fluid index normal. Electronically Signed by Harris Veras MD 12/29/2018 04:20 A
== END ==
LOC: M RAD 12:31
PROVIDERS: ATTEND Obstetrics & Gynecology
DX: O10.013 Pre-existing essential hypertension complicating pregnancy, third trimester (principal); Z3A.32 32 weeks gestation of pregnancy

== ENCOUNTER → 2019-01-04 | Outpatient (CLI) | payer OTHER ==
--- NOTE | 2019-01-04 14:18 | REP ---
Clinical: High risk for well being Comparison: 12/28/2018 . Findings: Examination demonstrates a single live intrauterine in cephalic presentation. motion is identified by technologist. Placenta is noted posterior and grade I without evidence for placenta previa or abruption. Amniotic fluid volume is normal. Cervix measures 4.2 cm in length and appears closed. Nuchal cord cannot be excluded. Gestational age by LMP 32 weeks 3 days with LOUISA 02/26/2019 . FHR equals 132 beats per minute. Biophysical profile score: 8/8 Amniotic fluid index: 14.0 cm (8.5 - 24.3) Umbilical cord SD ratio: 1.95 (2.30 - 3.30) Impression: Single live advanced gestation in cephalic presentation. Nuchal cord cannot be excluded. Biophysical profile score and amniotic fluid volume are normal. Umbilical cord SD ratio mildly decreased. Electronically Signed by Harris Veras MD 01/04/2019 02:10 P
== END ==
LOC: M RAD 12:54
PROVIDERS: ATTEND Obstetrics & Gynecology
DX: O10.013 Pre-existing essential hypertension complicating pregnancy, third trimester (principal); Z3A.32 32 weeks gestation of pregnancy

== ENCOUNTER → 2019-01-11 | Outpatient (CLI) | payer OTHER ==
--- NOTE | 2019-01-12 06:23 | REP ---
Clinical: well-being Comparison: 01/04/2019 . Findings: Examination demonstrates a single live intrauterine in transverse (head to maternal right) presentation. motion is identified by technologist. Placenta is noted posterior fundal and grade one without evidence for placenta previa or abruption. Amniotic fluid volume is normal. Cervix appears closed. No evidence for nuchal cord. Gestational age by LMP 33 weeks 3 days with LOUISA 02/26/2019 . Gestational age by first ultrasound measurements 33 weeks 0 days with LOUISA 03/01/2019 . FHR equals 130 beats per minute. Biophysical profile score: 8/8 Amniotic fluid index: 12.4 cm Umbilical cord SD ratio: 2.76 Impression: Single live advanced gestation in transverse lie. Biophysical profile score and amniotic fluid volume are normal. Electronically Signed by Harris Veras MD 01/12/2019 06:15 A
== END ==
LOC: M RAD 11:11
PROVIDERS: ATTEND Obstetrics & Gynecology
DX: O10.013 Pre-existing essential hypertension complicating pregnancy, third trimester (principal); Z3A.33 33 weeks gestation of pregnancy

== ENCOUNTER → 2019-01-18 | Outpatient (CLI) | payer OTHER ==
--- NOTE | 2019-01-18 16:13 | REP ---
Obstetric sonography: History: Supervision of biophysical profile. growth study. Findings: Scanning through the gravid uterus demonstrates a viable single intrauterine gestation in a cephalic lie. motion is observed and heart rate is recorded at 137 beats per minute. A posterior grade 1 placenta is seen without evidence of previa or abruption. Amniotic fluid is subjectively normal. Closed cervical length measures 3.3 cm. No extrauterine abnormality is observed. There has been appropriate interval growth. The umbilical cord is seen draping over the neck. renal hydronephrosis is noted on the left and pyelectasis noted on the right. AP dimension of the renal pelvises are enlarged bilaterally measuring 2.3 cm on the left and a 0.8 cm on the right. These findings are previously noted and appears somewhat more prominent. This compared with prior sonography from December 28, 2018. The following anatomic structures are identified today and felt to be unremarkable: cranium, cavum, face and profile, lungs, left and right ventricular outflow tract views, diaphragm, left-sided stomach, abdominal wall cord insertion, three-vessel cord, urinary bladder. Biometry chart: BPD 8.8 cm 35 weeks 4 days head circumference 32.6 cm 37 weeks 0 days abdominal circumference 31.8 cm 35 weeks 5 days femur length 6.7 cm 34 weeks 4 days humeral length 6.0 cm 34 weeks 3 days HC/AC ratio normal 1.03. Cephalic index normal 0.75, estimated weight 2703 grams, 5 pounds 15 ounces, 68 percentile for 34 weeks 3 days cervical length 3.3 cm, heart rate 137 beats per minute. SADIA 18.8 cm biophysical profile 8/8 out of a possible eight. SD ratio in the umbilical cord artery by Doppler normal 2.37. Impression: Viable single intrauterine gestation at 35 weeks 3 days by today's composite sonographic criteria. Expected gestational age estimate based on prior sonography is 34 weeks 0 days. LOUISA by prior sonography March 01, 2019. Right pelviectasis, 8.9 mm and moderate left sided hydronephrosis, 22.6 mm noted. urinary tracts sonography recommended. Electronically Signed by Carlos Johansen MD 01/18/2019 09:06 P
== END ==
LOC: M RAD 10:57
PROVIDERS: ATTEND Obstetrics & Gynecology
DX: O10.013 Pre-existing essential hypertension complicating pregnancy, third trimester (principal); Z36.89 Encounter for other specified antenatal screening; Z3A.34 34 weeks gestation of pregnancy

== ENCOUNTER → 2019-01-23 | Outpatient (REF) | payer OTHER ==
[~2019-01-23] MED LIST changes: +FLUO20CA19 PO; +JENC0.35 PO; +LABE20TAB PO; +LEVO2TA PO; -METF750T PO; +METF750T36 PO; -OMEP40CA2 PO; +OMEP40CA97 PO; +PRENTAB53 PO; +SYNT75TA PO
== END ==
LOC: M LAB REF 13:18
PROVIDERS: ATTEND Obstetrics & Gynecology
DX: O10.013 Pre-existing essential hypertension complicating pregnancy, third trimester (principal)

== ENCOUNTER → 2019-01-25 | Outpatient (CLI) | payer OTHER ==
[~2019-01-25] MED LIST changes: -FLUO20CA19 PO; -JENC0.35 PO; -LEVO2TA PO; +OMEP40CA2 PO; -OMEP40CA97 PO; -SYNT75TA PO
--- NOTE | 2019-01-25 13:25 | REP ---
REASON FOR EXAM: Obtain biophysical profile. Maternal hypertension. Multiple ultrasonographic images of the gravid uterus show a single living intrauterine gestation in the cephalic presentation. Doppler interrogation of the heart shows a heart rate of 142 beats per minute. The placenta is posterior, fundal and not low lying. The subjective amniotic fluid volume is within normal limits. The calculated amniotic fluid index is 18.0 with an expected range 7.8 to 24.9. Doppler interrogation of the umbilical artery shows an AB ratio of 2.74. This is within the normal range. biophysical profile score: 2 for breathing 2 for movement 2 for tone 2 for amniotic fluid volume Giving a subtotal of 8 out of 8. IMPRESSION: Limited OB ultrasound as described above. Electronically Signed by Young Washington DO 01/25/2019 02:02 P
== END ==
LOC: M RAD 11:00
PROVIDERS: ATTEND Obstetrics & Gynecology
DX: O10.013 Pre-existing essential hypertension complicating pregnancy, third trimester (principal)

== ENCOUNTER → 2019-02-01 | Outpatient (CLI) | payer OTHER ==
[~2019-02-01] MED LIST changes: +METF750T PO; -METF750T36 PO
--- NOTE | 2019-02-02 09:19 | REP ---
Clinical: well-being Comparison: 01/25/2019 . Findings: Examination demonstrates a single live intrauterine in breech presentation. motion is identified by technologist. Placenta is noted posterior/fundal and grade II without evidence for placenta previa or abruption. Few placental venous lakes again noted. Amniotic fluid volume is normal. Cervix measures 2.4 cm in length and appears closed. No evidence for nuchal cord. Biophysical profile score: 01/12 Amniotic fluid index: 14.5 cm (7.6 - 24.7) Umbilical cord SD ratio: 2.00 Impression: Single live advanced gestation in breech presentation. Biophysical profile score is normal. Amniotic fluid volume normal. Electronically Signed by Harris Veras MD 02/02/2019 09:11 A
== END ==
LOC: M RAD 11:40
PROVIDERS: ATTEND Obstetrics & Gynecology
DX: O10.013 Pre-existing essential hypertension complicating pregnancy, third trimester (principal); Z3A.00 Weeks of gestation of pregnancy not specified

== ENCOUNTER 2019-02-07 06:01 | Inpatient (IN) | payer OTHER ==
[~2019-02-07] VITALS: Ht 157.5 cm; Wt 110.2 kg
[2019-02-07] VITALS (24 sets, daily range): BP systolic 117–160; BP diastolic 58–91
[~2019-02-07 06:01] MED LIST changes: -METF750T PO; +METF750T36 PO
[2019-02-07] MEDS ORDERED: LR 1,000 ML IV SCH (07:38)
[2019-02-07] MEDS ORDERED: PENICILLIN G POTASSIUM IV 5 MU in D5W MINI-BAG PLUS 100 ML IV STA (07:38)
[2019-02-07] MEDS ORDERED: INSULIN HUMAN REGULAR 100 UNITS in NS 99 ML IV SCH ×2 (07:38→14:00)
[2019-02-07] MEDS ORDERED: INSULIN IV RATE CHANGE DOCUMENTATION ML/HR XX SCH (07:45)
[2019-02-07] MEDS ORDERED: OXYTOCIN DRIP 30 UNITS in APPROPRIATE DILUENT 1 EA IV SCH ×2 (07:45→22:32)
[2019-02-07 07:58] LABS: HEMATOCRIT 36.3 % (36.0-47.0); HEMOGLOBIN 11.9 g/dl (12.0-15.5); MEAN CORPUSCULAR HEMOGLOBIN 27.7 pg (27.0-33.0); MEAN CORPUSCULAR HGB CONC 32.8 g/dl (32.0-36.5); MEAN CORPUSCULAR VOLUME 84.6 fl (80.0-96.0); PLATELET COUNT, AUTOMATED 231 10^3/uL (150-450); RED BLOOD COUNT 4.29 10^6/uL (4.00-5.40); WHITE BLOOD COUNT 12.6 10^3/uL (4.0-10.0)
[2019-02-07] MEDS: NS 1,000 ML IV SCH ×2 (08:01→14:54)
[2019-02-07] MEDS: PENICILLIN G POTASSIUM IV 2.5 MU in APPROPRIATE DILUENT 1 EA IV SCH ×2 (12:19→16:15)
--- NOTE | 2019-02-07 14:08 | IPNPDOC ---
Obstetrical Progress Note Date of Service Feb 07, 2019 Subjective Patient feeling contractions. Objective Vital Signs Date Time Temp Pulse Resp B/P (MAP) Pulse Ox O2 Delivery O2 Flow Rate FiO2 02/07/19 10:23 20 141/77 (98) 77 02/07/19 09:22 82 02/07/19 08:21 97.9 Assessment Heart Rate (FHR): 125 Variability: Moderate Accelerations: Positive Decelerations: None Heart Rate Tracing: Category I Tocometer Contractions: Yes Frequency: irregular, other (1.5-8 minutes) Sterile Vaginal Examination Dilation: 4 cm (4-5 cm) Effacement (%): other (75%) Station: -3 Cervical Consistency: Soft Cervical Position: Anterior Postion/Presentation: Transverse presentation (oblique to maternal right with transverse lie by sono. ) Assessment and Plan EGA at Admission: 37.2 Status: Reassuring Group B Streptococcus: Positive Additional Comments IV Pitocin turned off. It was at 8 mu/min. Patient desires TOLAC. Patient repositioned. Dr. Pozo made aware. Will recheck position with sono. TITUS ASHLEY CNM Feb 07, 2019 14:08
--- NOTE | 2019-02-07 14:55 | HPE ---
DATE OF ADMISSION: 02/07/2019 Patient is a 39-year-old female who is a 4, para 3-0-0-3 at 37 weeks and 2 days gestation. She initiated care in her first trimester with [facility]. Her expected date of delivery (LOUISA) is 02/26/2019 based off of her last menstrual period (LMP) and consistent with her first trimester ultrasound. Her is uncomplicated by history of pre-exiting type 2 diabetes, which she was taking metformin 750 mg for, chronic hypertension, for which she was on lisinopril and switched to labetalol 200 mg twice a day. Advanced maternal age, history of thyroid cancer, for which she had a thyroidectomy for and taking 250 mcg of Synthroid daily. She has a history of a low transverse section due to macrosomia, diabetes and chronic hypertension. She presents to labor and delivery today for an induction of labor due to her complicated obstetrical history being chronic hypertension, type 2 diabetes, advanced maternal age (AMA), and history of low transverse section. PAST MEDICAL PREGNANCIES: In June 2000 at 40 weeks 5 days, she had a vaginal delivery of a living female weighing 8 pounds, 3 ounces. May 2001 at 37 weeks, she had a vaginal delivery of a living male weighing 5 pounds, 15 ounces with no complications. In April 2011 at 39 weeks, she had a primary section of a living male weighing 10 pounds 10 ounces complicated by macrosomia, gestational diabetes and gestational hypertension. LABS: Patient's blood type is A positive with antibody screen negative. Her hemoglobin and hematocrit in the first trimester was 11.1 and 34.2 with platelets 280. Rubella is immune. Her VDRL is nonreactive. Her urine, blood contaminated and a repeat was done with no growth. HIV is negative. Her TSH was 4.9 in the first trimester. Her gonorrhea and chlamydia were both negative. Her hepatitis C is negative. She did NIPT testing which showed a low risk, normal male. Her hemoglobin and hematocrit in the third trimester was 11.5 and 35.4, platelets of 224. She is GBS positive. Her hemoglobin A1c has been as high as 6.0. Her last thyroid check was 4.74 with a free T4 of 0.99. Ultrasound: Last growth ultrasound with a biophysical profile (BPP) was done on 01/18/2019 showed a single intrauterine (SIUP) in cephalic presentation with a placenta that is posterior. Renal hydronephrosis is noted on both the left and pyelectasis on the right. Growth was 68% percentile at 2703 grams with an SADIA of 18.8 cm, BPP was 8/8. PAST MEDICAL HISTORY: The patient is a type 2 diabetic, chronic hypertension, thyroid cancer, and varicella as a child. PAST SURGICAL HISTORY: Thyroidectomy, tonsillectomy. FAMILY HISTORY: Diabetes. SOCIAL HISTORY: The patient is . She denies being a smoker. She denies any history of alcohol or drug abuse prior to or during . She denies any history of any sexually transmitted infection. ALLERGIES: Codeine. CURRENT MEDICATIONS: - Metformin extended release 750 mg twice a day - Labetalol 200 mg twice a day - levothyroxine 275 mcg daily - vitamin heart rate 125, positive accelerations, no decelerations. Moderate variability. Contractions are irregular. Sterile vaginal examination (SVE): 1-2 cm dilated, 50% effaced, head is high, soft, in position, no bloody show. PHYSICAL ASSESSMENT: GENERAL: Alert and oriented times three. In no apparent distress. HEART: Regular rate and rhythm. No murmurs, gallops, or rubs. LUNGS: Regular rate and no use of accessory muscles. ABDOMEN: Gravid, nontender to touch. Ultrasound shows cephalic presentation. EXTREMITIES: Lower extremities: Generalized edema. No clonus. ASSESSMENT: Intrauterine (IUP) at 37.2 weeks gestation, chronic hypertension, type 2 diabetes, prior sections, desires trial of labor, advanced maternal age, category I heart tracing, positive GBS. PLAN: Dr. Pozo is aware of patient being in the department and was consulted on plan of care. Admit the patient to labor and delivery. Out of bed to the bathroom privileges. Saline lock and labs per unit protocol. Insulin drip ordered with fingersticks every 2 hours while in latent labor and every hour while in active labor. A Beaver bulb will be placed with IV Pitocin due to history of section. A beaver bulb with 60 cc uterine and 50 cc vaginal was placed without difficulty. IV Pitocin to be started per order. Anesthesia is aware of patient being in the department. Anticipate cervical change and spontaneous vaginal delivery. MTDD
--- NOTE | 2019-02-07 15:07 | IPNPDOC ---
Obstetrical Progress Note Date of Service Feb 07, 2019 Subjective Patient reports she feels the baby is vertex as she is feeling movement at her fundus. Objective Vital Signs Date Time Temp Pulse Resp B/P (MAP) Pulse Ox O2 Delivery O2 Flow Rate FiO2 02/07/19 10:23 20 141/77 (98) 77 02/07/19 09:22 82 02/07/19 08:21 97.9 Assessment Heart Rate (FHR): 125 Variability: Moderate Accelerations: Positive Decelerations: None Heart Rate Tracing: Category I Tocometer Contractions: Yes Frequency: irregular Sterile Vaginal Examination Postion/Presentation: Cephalic presentation (noted via sono) Assessment and Plan Anticipate: Vaginal Delivery Additional Comments IV Pitocin to be restarted. Will consider AROM when contractions are more f requent. TITUS ASHLEY CNM Feb 07, 2019 15:07
[2019-02-07] MEDS ORDERED: PROMETHAZINE INJ 25 MG/ML VIAL (J2550) As Ordered ONE (20:27)
[2019-02-07] MEDS ORDERED: BUTORPHANOL 2 MG/ML INJ (J0595) As Ordered ONE (20:27)
[2019-02-07] MEDS ORDERED: BUTORPHANOL 2 MG/ML INJ (J0595) IV ONE (21:00)
[2019-02-07] MEDS ORDERED: PROMETHAZINE INJ 25 MG/ML VIAL (J2550) IV ONE (21:00)
[2019-02-07] MEDS ORDERED: IBUPROFEN 800 MG TAB PO PRN (22:45)
[2019-02-07] MEDS ORDERED: ACETAMINOPHEN 500 MG TAB PO PRN (22:45)
[2019-02-07] MEDS ORDERED: RHOGAM 300 MCG (1500 IU) INJ (J2790) IM SCH (22:45)
[2019-02-07] MEDS ORDERED: ANUSOL HC CREAM 30GM TOP PRN (22:45)
[2019-02-07] MEDS ORDERED: DOCUSATE SODIUM 100 MG CAP PO PRN (22:45)
[2019-02-07] MEDS ORDERED: METHYLERGONOVINE MALEATE 0.2 MG TAB PO PRN (22:45)
[2019-02-07] MEDS ORDERED: DIBUCAINE 1% OINTMENT 30GM TOP PRN (22:45)
[2019-02-07] MEDS ORDERED: MEASLES,MUMPS,RUBELLA VACCINE INJ (MMR-II) (90707) SC SCH (22:45)
[2019-02-07] MEDS ORDERED: ACETAMINOPHEN TAB 650MG DOSE (2X325MG) PO PRN (22:45)
[2019-02-07] MEDS ORDERED: IBUPROFEN 600 MG TAB PO PRN (22:45)
[2019-02-07] MEDS: LABETALOL 200 MG TAB PO SCH (23:00)
--- NOTE | 2019-02-07 23:13 | IPNPDOC ---
Obstetrical Progress Note Date of Service Feb 07, 2019 Subjective late entry: 1634; Patient reports feeling contractions and getting more uncomfortable. Reports she is coping well. Objective Vital Signs Date Time Temp Pulse Resp B/P (MAP) Pulse Ox O2 Delivery O2 Flow Rate FiO2 02/07/19 18:01 70 16 133/71 (91) 02/07/19 16:52 97 02/07/19 15:36 98.1 Assessment Heart Rate (FHR): 130 Variability: Moderate Accelerations: Positive Decelerations: None Heart Rate Tracing: Category I Tocometer Contractions: Yes Frequency: regular Sterile Vaginal Examination Dilation: 5 cm Effacement (%): other (75%) Station: -2 Cervical Consistency: Soft Cervical Position: Anterior Postion/Presentation: Cephalic presentation (noted by bedside ultrasound) Assessment and Plan Age: 39 : 4 Term: 3 Pre-term: 0 Abortions: 0 Livin EGA at Admission: 37.2 Status: Reassuring Group B Streptococcus: Positive Anticipate: Vaginal Delivery Additional Comments AROM to a moderate amount of clear fluid. Dr. Pozo notified of active labor and is present in hospital at this time. IV Pitocin is at 10 mu/min. Will continue with IV Pitocin. TITUS ASHLEY CNM Feb 07, 2019 23:13
[2019-02-08 00:40] VITALS: BP 121/75
[2019-02-08 05:32] VITALS: BP 124/67
[2019-02-08] MEDS: LEVOTHYROXINE 25MCG TABLET (0.025MG) PO SCH (06:02)
[2019-02-08] MEDS: LEVOTHYROXINE 125MCG TABLET (0.125MG) PO SCH (06:02)
[2019-02-08] MEDS: metFORMIN XR 750 MG TAB PO SCH (06:02)
--- NOTE | 2019-02-08 06:15 | IPNPDOC ---
Text Note Date of Service The patient was seen on 02/08/19. NOTE Day 1 s/p /; uncomplicated S: pain well controlled, lochia and bleeding decreasing, voiding spontaneously, ambulating without assistance, tolerating regular diet. Breast feeding. O: vitals stable Heart: RRR, no murmurs Lungs: CTA bilaterally Abd: fundus firm at U Ext: no edema, nontender, negative Chandrika's bilaterally A/P: 39 yo G4 now P4. day 1 s/p /. Hemodynamically stable, afebrile, adequate pain control. Recovering well. -Routine care and advancement. -Anticipate discharge tomorrow VS,Fishbone, I+O VS, Fishbone, I+O Laboratory Tests 02/07/19 07:43 Red Blood Count 4.29, Mean Corpuscular Volume 84.6, Mean Corpuscular Hemoglobin 27.7, Mean Corpuscular Hemoglobin Concent 32.8, Red Cell Distribution Width 14.3 Vital Signs Date Time Temp Pulse Resp B/P (MAP) Pulse Ox O2 Delivery O2 Flow Rate FiO2 02/08/19 05:32 98.5 67 16 124/67 (86) 02/07/19 21:05 100 I&O- Last 24 Hours up to 6 AM 02/08/19 06:00 Intake Total 2272 ml Output Total 1400 ml Balance 872 ml GME ATTESTATION GME ATTESTATION My faculty preceptor for this patient encounter was physically present during the encounter and was fully available. All aspects of the patient interview, examination, medical decision making process, and medical care plan development were reviewed and approved by the faculty preceptor. The faculty preceptor is aware and concurs with the plan as stated in the body of this note and will attest to such by his/her cosignature. SHAHRAM GUTIERREZ DO Feb 08, 2019 06:15
--- NOTE | 2019-02-08 09:59 | DN ---
Delivery DATE: 02/07/2019 TIME: 2038 STATUS: Successful vaginal after (). Delivered. PROVIDER: Cristiana Van CNM, ROLANDO ANESTHESIA: None. ESTIMATED BLOOD LOSS: 300 mL. FINDINGS: Male, 8 pounds 3 ounces, 3720 grams, Agars 02/13, prior section with successful , type 2 diabetes, chronic hypertension, advanced maternal age (AMA), history of thyroid cancer. The patient is a 39-year-old female who is a 4, now para 4-0-0-4, at 37 weeks and 2 days gestation. The patient presented to labor and delivery for a repeat section due to breech presentation. Findings were the baby was in cephalic presentation. The patient decided to do a trial of labor. A Styles bulb was placed and IV Pitocin was used for induction of labor. The patient progressed to fully dilated at 2034 and pushed to a living male in the right occiput anterior (ZEYNEP) position with restitution to right occiput transverse (ROT) at 2038. Dr. Pozo was present during active labor and present in the hospital while patient was pushing. The anterior shoulder delivered with ease and the corpus immediately followed. The baby was placed on the maternal abdomen active and crying. The cord was clamped times two after pulsations ceased and cut by the father of the baby. A three vessel cord was noted. The placenta delivered spontaneously and intact at 2042. Uterine hemostasis was achieved via rapid infusion of IV Pitocin and fundal massage. The vagina, cervix and perineum was inspected and found to be intact. Mom plans to breast feed her . They are naming him Lj. Both mom and baby are in stable condition. All counts of instruments and sponges are correct. MTDD
[2019-02-08] MEDS: PRENATAL VITAMINS CHEWABLE TABLET PO SCH (10:08)
[2019-02-08] MEDS: LABETALOL 200 MG TAB PO SCH ×2 (10:46→21:27)
[2019-02-08 18:00] VITALS: BP 134/76
[2019-02-09] MEDS: LEVOTHYROXINE 125MCG TABLET (0.125MG) PO SCH (05:18)
[2019-02-09] MEDS: LEVOTHYROXINE 25MCG TABLET (0.025MG) PO SCH (05:18)
[2019-02-09 05:50] VITALS: BP 118/62
[2019-02-09] MEDS: metFORMIN XR 750 MG TAB PO SCH (06:32)
[2019-02-09 08:54] VITALS: BP 128/70
[2019-02-09] MEDS: PRENATAL VITAMINS CHEWABLE TABLET PO SCH (08:54)
[2019-02-09] MEDS: LABETALOL 200 MG TAB PO SCH (08:54)
== END 2019-02-09 14:00 | disposition home or self-care (01) | DRG 560 ==
LOC: M LDI 06:01 → M OBS 23:32
PROVIDERS: ADMIT Obstetrics & Gynecology; ATTEND Obstetrics & Gynecology
PROC: 10E0XZZ Delivery of Products of Conception, External Approach (ICD-10-PCS; principal; 2019-02-07)
PROC: 10907ZC Drainage of Amniotic Fluid, Therapeutic from Products of Conception, Via Natural or Artificial Opening (ICD-10-PCS; 2019-02-07)
PROC: 3E033VJ Introduction of Other Hormone into Peripheral Vein, Percutaneous Approach (ICD-10-PCS; 2019-02-07)
DX: O10.02 Pre-existing essential hypertension complicating childbirth (principal); O24.12 Pre-existing type 2 diabetes mellitus, in childbirth; O34.211 Maternal care for low transverse scar from previous cesarean delivery; Z3A.37 37 weeks gestation of pregnancy; Z37.0 Single live birth; E11.9 Type 2 diabetes mellitus without complications; Z79.84 Long term (current) use of oral hypoglycemic drugs; O99.824 Streptococcus B carrier state complicating childbirth; Z85.850 Personal history of malignant neoplasm of thyroid; E89.0 Postprocedural hypothyroidism

== ENCOUNTER 2019-04-16 21:25 | Inpatient (IN) | payer OTHER ==
[~2019-04-16] VITALS: Ht 157.5 cm; Wt 101.3 kg
[~2019-04-16 21:25] MED LIST changes: -OMEP40CA2 PO; +OMEP40CA97 PO
[2019-04-16] MEDS ORDERED: JENC0.35 PO (21:52)
[2019-04-16] MEDS ORDERED: FLUO20CA19 PO (21:52)
[2019-04-16 21:53] LABS: HEMATOCRIT 42.8 % (36.0-47.0); HEMOGLOBIN 13.6 g/dl (12.0-15.5); MEAN CORPUSCULAR HEMOGLOBIN 26.7 pg (27.0-33.0); MEAN CORPUSCULAR HGB CONC 31.8 g/dl (32.0-36.5); MEAN CORPUSCULAR VOLUME 83.9 fl (80.0-96.0); PLATELET COUNT, AUTOMATED 298 10^3/uL (150-450); WHITE BLOOD COUNT 12.4 10^3/uL (4.0-10.0)
[2019-04-16 22:11] LABS: AMPHETAMINES LEVEL URINE NEGATIVE (NEGATIVE); BARBITURATES URINE NEGATIVE (NEGATIVE); BENZODIAZEPINES URINE NEGATIVE (NEGATIVE); CANNABINOIDS URINE NEGATIVE (NEGATIVE); COCAINE METABOLITE URINE NEGATIVE (NEGATIVE); METHADONE URINE NEGATIVE (NEGATIVE); OPIATES URINE NEGATIVE (NEGATIVE); PHENCYCLIDINE URINE NEGATIVE (NEGATIVE)
[2019-04-16 22:43] LABS: ACETAMINOPHEN LEVEL < 2.0 UG/ML (10.0-30.0); ALBUMIN 3.8 GM/DL (3.2-5.2); ALT/SGPT 34 U/L (12-78); BILIRUBIN,DIRECT < 0.1 MG/DL (0.0-0.2); BILIRUBIN,TOTAL 0.3 MG/DL (0.2-1.0); BLOOD UREA NITROGEN 15 MG/DL (7-18); CALCIUM LEVEL 9.3 MG/DL (8.5-10.1); CARBON DIOXIDE LEVEL 25 MEQ/L (21-32); CHLORIDE LEVEL 107 MEQ/L (98-107); CREATININE FOR GFR 0.75 MG/DL (0.55-1.30); ETHYL ALCOHOL (ETHANOL) < 0.003 % (0.000-0.010); GLOMERULAR FILTRATION RATE > 60.0 (>60); GLUCOSE, FASTING 113 MG/DL (70-100); POTASSIUM SERUM 4.1 MEQ/L (3.5-5.1); SALICYLATE LEVEL < 1.7 MG/DL (5.0-30.0); SODIUM LEVEL 142 MEQ/L (136-145)
[2019-04-17] MEDS ORDERED: SYNT75TA PO (00:25)
[2019-04-17] MEDS ORDERED: LEVO2TA PO (00:25)
[2019-04-17] MEDS ORDERED: ACETAMINOPHEN TAB 650MG DOSE (2X325MG) PO PRN (00:30)
[2019-04-17] MEDS ORDERED: traZODone 50 MG TAB PO PRN (00:30)
[2019-04-17] MEDS ORDERED: MAALOX 30 ML SUSP *UDC PO PRN (00:30)
[2019-04-17] MEDS ORDERED: MOM 30ML SUSPENSION UDC PO PRN (00:30)
[2019-04-17] MEDS ORDERED: cloNIDine 0.2 MG TAB PO ONE (01:15)
[2019-04-17 02:11] VITALS: BP 142/94
[2019-04-17] MEDS ORDERED: LEVOTHYROXINE 100MCG TABLET (0.1MG) PO SCH (06:00)
[2019-04-17] MEDS ORDERED: LEVOTHYROXINE 75MCG TABLET (0.075MG) PO SCH (06:00)
[2019-04-17 06:32] VITALS: BP 143/87
[2019-04-17] MEDS ORDERED: metFORMIN XR 750 MG TAB PO SCH (08:00)
[2019-04-17] MEDS ORDERED: LABETALOL 200 MG TAB PO SCH (09:00)
[2019-04-17] MEDS ORDERED: FLUoxetine 20 MG CAP PO SCH (09:00)
[2019-04-17 09:30] VITALS: BP 137/92
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
[2019-04-17] MEDS ORDERED: LISI10TA4 PO (13:51)
[2019-04-17] MEDS ORDERED: INFLUENZA QUADRIVALENT PF VACCINE 0.5ML SYRINGE (90686) IM ONE (14:00)
--- NOTE | 2019-04-17 16:54 | HPE ---
DATE OF ADMISSION: 04/17/2019 CHIEF COMPLAINT: Depression. HISTORY OF PRESENT ILLNESS: This is a 39-year-old female with a history of diabetes, hypertension, hypothyroidism, who was admitted to the inpatient mental health unit for depression. The hospitalist was called to do routine medical history and physical. The patient denies any fever, chills, weight gain or weight loss, changes in appetite, nausea, vomiting, abdominal pain. Denies chest pain, pressure, tightness, shortness of breath, palpitations, lightheadedness, dizziness. Denies dysuria, urgency or frequency. Admits to having uncontrolled blood pressure and was placed on labetalol, status post delivery. Denies any headaches, changes in vision and has previously taken Lisinopril 10 mg prior to . The patient denies upper or lower extremity weakness. Admits to having a history of diabetes, hypertension, hyperthyroid with thyroid resection. All other systems are otherwise negative. PAST MEDICAL HISTORY: 1. Diabetes. 2. Hypertension. 3. Hyperthyroidism. 4. Iron deficiency anemia. PAST SURGICAL HISTORY: 1. Cholecystectomy. 2. Tonsillectomy. 3. section. ALLERGIES: CODEINE causing angioedema. HOME MEDICATIONS: - labetalol 200 mg twice a day - fluoxetine 20 mg daily - Synthroid 75 mcg daily - metformin 750 mg twice a day - Norlestrin 0.35 daily SOCIAL HISTORY: Denies cigarette use. Prior to drank mixed vodka and orange juice. Self employed doing babysitting. FAMILY HISTORY: Maternal grandmother with diabetes. Mother with diabetes at age 57. Father with hypertension, coronary artery disease, of bladder cancer at age 49. Brother and sisters alive and well. REVIEW OF SYSTEMS: As per history of present illness. 12-point system otherwise negative. PHYSICAL EXAMINATION: VITAL SIGNS: Temperature 99, pulse 75, respiratory rate 18, blood pressure 143/87, 100% on room air. GENERAL: Awake, alert, oriented times three. Answering questions appropriately. The patient has no respiratory distress. Speaks in full sentences. NECK: Supple. Full range of motion. No cervical lymphadenopathy. No jugular venous distention (JVD). Tongue is midline. LUNGS: Clear to auscultation. No wheezing, rales or rhonchi. HEART: S1, S2. Sinus rhythm. ABDOMEN: Soft, nontender, nondistended. Positive bowel sounds. EXTREMITIES: No cyanosis, clubbing or pitting edema. LABORATORY DATA: 04/16/2019 white count 12.4, hemoglobin 13, hematocrit 42, platelet count 298. Sodium 142, potassium 4, chloride 107, bicarbonate 25, BUN 15, creatinine 0.75, glucose 113, calcium 9.3, total bilirubin 0.3, direct bilirubin less than 0.1, AST 17, ALT 34, alkaline phosphatase 77, total protein 7, albumin 3.8, TSH of 0.17, albumin globulin ratio 1.19. Toxicology screen: Less than 1.7 salicylate, less than 2 acetaminophen, less than 0.003 ethyl alcohol, otherwise negative. Fingersticks 101. ASSESSMENT AND PLAN: 39-year-old female with diabetes, hypertension, hyperthyroid with resection, currently on replacement therapy, iron deficiency anemia, admitted for depression to the inpatient mental health unit, no other acute medical issues. 1. Type 2 diabetes. The patient is put on consistent carbohydrate diet and resumed on home medications. On Metformin. 2. Hypertension. The patient is currently not breast feeding. She may be resumed on Lisinopril, which is cardioprotective and renal protective for blood pressure control. Immediate followup with her primary care provider within 5 days of hospital discharge for blood pressure check. 3. History of hyperthyroidism with thyroid resection. Currently on replacement therapy. Outpatient followup with her primary care provider. 4. History of iron deficiency anemia. No acute issues. 5. Depression. On Prozac. 6. Deep vein thrombosis (DVT) prophylaxis. Encourage ambulation. MTDD
--- NOTE | 2019-04-18 12:12 | MHDSPDOC ---
[facility] Discharge Summary Discharge Summary DATE OF ADMISSION: Apr 17, 2019 at 00:18 DATE OF DISCHARGE: Apr 17, 2019 at 14:05 DISCHARGE DIAGNOSES: Adjustment disorder with disruption of mood and conduct. Cluster B personality traits. please see h/p for discussion of presentation and planning on same day discharge Vital Signs/I&Os Vital Signs Date Time Temp Pulse Resp B/P (MAP) Pulse Ox O2 Delivery O2 Flow Rate FiO2 04/17/19 09:30 83 137/92 04/17/19 08:32 Room Air 04/17/19 06:32 99.0 16 04/17/19 01:06 96 Medications Scheduled Fluoxetine Hcl (Fluoxetine HCl) 20 Mg Capsule, 20 MG PO DAILY, (Reported) Levothyroxine Sodium (Synthroid) 200 Mcg Tablet, 200 MCG PO DAILY, (Reported) TAKES WITH 75MCG FOR TOTAL OF 275MCG Levothyroxine Sodium (Synthroid) 75 Mcg Tablet, 75 MCG PO DAILY, (Reported) TAKES WITH 200MCG FOR TOTAL OF 275MCG Lisinopril (Lisinopril) 10 Mg Tablet, 10 MG PO DAILY for hypertension for 30 Days, #30 Metformin HCl (Metformin HCl ER) 750 Mg Tab, 750 MG PO BID, (Reported) TAKES AFTER DINNER Norethindrone (Jencycla) 0.35 Mg Tablet, 0.35 MG PO DAILY, (Reported) Allergies Coded Allergies: codeine (Verified Allergy, Unknown, 02/02/19) BOBBY LOW DO Apr 18, 2019 12:12
== END 2019-04-17 14:05 | disposition home or self-care (01) | DRG 755 ==
LOC: M ED 21:25 → M ED INP 04-17 00:18 → M PSY 04-17 02:12
PROVIDERS: ADMIT Psychiatry & Neurology Addiction Medicine; ATTEND Psychiatry & Neurology Addiction Medicine
DX: F43.25 Adjustment disorder with mixed disturbance of emotions and conduct (principal); F60.89 Other specific personality disorders; Z88.5 Allergy status to narcotic agent; Z79.84 Long term (current) use of oral hypoglycemic drugs; Z79.899 Other long term (current) drug therapy

== ENCOUNTER → 2019-09-06 | Outpatient (REF) | payer OTHER ==
[~2019-09-06] MED LIST changes: +FLUO20CA22 PO; +JENC0.35 PO; +LEVO2TA PO; +SYNT75TA PO
[2019-09-06 13:38] LABS: ALBUMIN 3.5 GM/DL (3.2-5.2); ALT/SGPT 21 U/L (12-78); BILIRUBIN,TOTAL 0.4 MG/DL (0.2-1.0); BLOOD UREA NITROGEN 10 MG/DL (7-18); CALCIUM LEVEL 8.8 MG/DL (8.5-10.1); CARBON DIOXIDE LEVEL 28 MEQ/L (21-32); CHLORIDE LEVEL 109 MEQ/L (98-107); CREATININE FOR GFR 0.64 MG/DL (0.55-1.30); FERRITIN 16 NG/ML (8-252); FREE T4 1.72 NG/DL (0.76-1.46); GLOMERULAR FILTRATION RATE > 60.0 (>60); GLUCOSE, FASTING 127 MG/DL (70-100); IRON (FE) 43 UG/DL (50-170); POTASSIUM SERUM 4.3 MEQ/L (3.5-5.1); SODIUM LEVEL 143 MEQ/L (136-145); THYROID STIMULATING HORMONE 0.634 uIU/ML (0.358-3.740); TOTAL IRON BINDING CAPACITY 391 UG/DL (250-450); TOTAL PROTEIN 6.9 GM/DL (6.4-8.2)
[2019-09-06 13:40] LABS: HEMOGLOBIN A1c 7.1 %
== END ==
LOC: M PLALAB 09:20
PROVIDERS: ATTEND Advanced Practice Midwife
DX: E03.9 Hypothyroidism, unspecified (principal); E11.9 Type 2 diabetes mellitus without complications; K80.20 Calculus of gallbladder without cholecystitis without obstruction

== ENCOUNTER → 2020-04-18 | Outpatient (REF) | payer OTHER | LOC: M SFHCWAGY 12:53 | PROVIDERS: ATTEND Advanced Practice Midwife | DX: Z12.4 Encounter for screening for malignant neoplasm of cervix (principal); Z01.419 Encounter for gynecological examination (general) (routine) without abnormal findings ==

== ENCOUNTER → 2020-04-29 | Outpatient (CLI) | payer OTHER ==
[2020-04-29 09:43] LABS: FREE T4 1.3 NG/DL (0.76-1.46); THYROID STIMULATING HORMONE 1.39 uIU/ML (0.358-3.740)
[2020-04-29 14:20] LABS: HEMOGLOBIN A1c 6.4 %
== END ==
LOC: M LAB 08:20
PROVIDERS: ATTEND Advanced Practice Midwife
DX: E11.9 Type 2 diabetes mellitus without complications (principal); E89.0 Postprocedural hypothyroidism

== ENCOUNTER → 2020-05-01 | Outpatient (CLI) | payer OTHER ==
--- NOTE | 2020-05-01 16:48 | REPMRS ---
Patient History The patient states she had a clinical breast exam in April 2020. Patient has history of other cancer at age 33. No known family history of cancer. 3D TOMOSYNTHESIS WAS PERFORMED. The [facility] lifetime risk for breast cancer is 8.9%. Volpara breast density . Digital Woman Screen Mammo: May 01, 2020 - Exam #: [id number] Bilateral CC and MLO view(s) were taken. Technologist: Caprice Temple, Technologist No prior studies available for comparison. FINDINGS: There are scattered fibroglandular densities. There is a mild amount of residual fibroglandular tissue which is fairly symmetric. There is no dominant mass, architectural distortion, or clustered microcalcification suggestive of malignancy. Assessment: BI-RADS/ACR category 1 mammogram. Negative Mammogram. Recommendation Routine screening mammogram in 1 year (for women over age 40). This mammogram was interpreted with the aid of an FDA-approved computer-aided dectection system. Electronically Signed By: Anthony Schuler MD 05/01/20 [id number]
== END ==
LOC: M WHC 15:37
PROVIDERS: ATTEND Advanced Practice Midwife
DX: Z12.31 Encounter for screening mammogram for malignant neoplasm of breast (principal); Z85.9 Personal history of malignant neoplasm, unspecified

== ENCOUNTER → 2020-07-02 | Outpatient (REF) | payer OTHER | LOC: M SFHCWAGY 18:03 | PROVIDERS: ATTEND Obstetrics & Gynecology | DX: R87.610 Atypical squamous cells of undetermined significance on cytologic smear of cervix (ASC-US) (principal) ==

== ENCOUNTER → 2020-08-04 | Outpatient (CLI) | payer OTHER ==
[~2020-08-04] MED LIST changes: +LISI10TA22 PO; -LISI10TA4 PO; +THERTAB52 PO
== END ==
LOC: M LABSMTC 09:17
PROVIDERS: ATTEND Anesthesiology
DX: Z01.812 Encounter for preprocedural laboratory examination (principal); Z20.822 Contact with and (suspected) exposure to COVID-19

== ENCOUNTER 2020-08-09 07:37 | Day surgery (SDC) | payer OTHER ==
[~2020-08-09] VITALS: Ht 157.5 cm; Wt 104.8 kg
[~2020-08-09 07:37] MED LIST changes: +LR 1,000 ML IV ONE
[2020-08-09] MEDS ORDERED: ONDANSETRON 4MG/2ML VIAL As Ordered ONE (08:01)
[2020-08-09] MEDS ORDERED: KETOROLAC 60MG 2ML VIAL As Ordered ONE (08:01)
[2020-08-09] MEDS ORDERED: fentaNYL 100 MCG/2 ML INJECTION (J3010) As Ordered ONE (08:01)
[2020-08-09] MEDS ORDERED: LIDOCAINE 2% 100MG/5ML SDV (FOR ANES.) As Ordered ONE (08:01)
[2020-08-09] MEDS ORDERED: MIDAZOLAM INJ 2MG/2ML VIAL (J2250 PER 1MG) As Ordered ONE (08:01)
[2020-08-09] MEDS ORDERED: dexameTHASONE 4 MG/ML 1ML VIAL (J1100 PER 1MG) As Ordered ONE (08:01)
[2020-08-09] MEDS ORDERED: propofoL 200 MG/20 ML VIAL As Ordered ONE ×3 (08:01→09:07)
[2020-08-09] MEDS ORDERED: LIDOCAINE W/EPINEPHRINE 1% 20ML VIAL As Ordered ONE (08:05)
[2020-08-09] MEDS ORDERED: IODINE STRONG SOLN 15 ML BTL As Ordered ONE (08:05)
[2020-08-09 08:21] LABS: HEMATOCRIT 40.9 % (36.0-47.0); MEAN CORPUSCULAR HEMOGLOBIN 26.9 pg (27.0-33.0); MEAN CORPUSCULAR HGB CONC 31.8 g/dl (32.0-36.5); MEAN CORPUSCULAR VOLUME 84.7 fl (80.0-96.0); PLATELET COUNT, AUTOMATED 292 10^3/uL (150-450); RED BLOOD COUNT 4.83 10^6/uL (4.00-5.40); WHITE BLOOD COUNT 10.7 10^3/uL (4.0-10.0)
[2020-08-09] MEDS ORDERED: SILVER NITRATE APPLICATOR As Ordered ONE (08:40)
--- NOTE | 2020-08-09 09:49 | ROOPDOC ---
[facility] Report Of Operation Report of Operation DATE OF OPERATION: 08/09/2020 PREOPERATIVE DIAGNOSIS:. Moderate cervical dysplasia SHANA-2 POSTOPERATIVE DIAGNOSIS: Same PROCEDURE PERFORMED: Loop electrosurgical excision procedure (LEEP) SURGEON: Jose Pozo DO IRON WORKER: None. ANESTHESIA: Intravenous (IV) sedation with local anesthesia/paracervical block. SPECIMEN(S) SENT TO PATHOLOGY: Cervix with squamocolumnar junction, tagged at 12:00 ESTIMATED BLOOD LOSS: 10 mL. FLUIDS PLACED: 800 mL. DRAINS: In and out catheter, 100 mL. URINE OUTPUT: None. COMPLICATIONS: None. ANTIBIOTICS: None indicated. INTRAOPERATIVE FINDINGS: INDICATIONS: SHANA-2 at 6:00 transformation zone per colposcopic-guided biopsy DESCRIPTION OF PROCEDURE: The patient was counseled and consented on the risks, benefits, indications, and alternatives of the procedure. Informed consent was obtained. She was taken to the operating room with an IV running in placed on the operating table and then dorsal supine position. Anesthesia was found to be adequate. She was placed in the high lithotomy position. She was prepared and draped in normal sterile fashion. Time-out was performed per protocol. The bladder was drained with sterile in and out catheter. A coated Graves speculum was placed into the vagina with good visualization of the cervix. The cervix was coated with Lugol solution and the dysplasia was evident even without colposcopy. Paracervical block was performed for postoperative comfort. Ten mL of 1% Lidocaine with epinephrine used. The size 20 mm x 10 mm loop was used to excise the cervix circumferentially at the level of the squamocolumnar junction. The remaining raw cervix was cauterized with a roller ball cautery. Excellent hemostasis was noted. Monsel solution was applied to ensure hemostasis. Sponge, needle, and instrument counts were correct per protocol. The patient tolerated the entire procedure very well. She was transferred to the PACU in good and stable condition. JOSE POZO DO Aug 09, 2020 09:49
[2020-08-09] MEDS ORDERED: LISI10TA22 PO (09:50)
[2020-08-09] MEDS ORDERED: JENC0.35 PO (09:51)
[2020-08-09 10:05] VITALS: BP 153/65
== END 2020-08-09 10:15 | disposition home or self-care (01) ==
LOC: M SDC 07:37
PROVIDERS: ATTEND Obstetrics & Gynecology
DX: N87.1 Moderate cervical dysplasia (principal); I10 Essential (primary) hypertension; E11.9 Type 2 diabetes mellitus without complications; K21.9 Gastro-esophageal reflux disease without esophagitis; D64.9 Anemia, unspecified; E03.9 Hypothyroidism, unspecified; Z79.84 Long term (current) use of oral hypoglycemic drugs; Z88.5 Allergy status to narcotic agent; Z79.899 Other long term (current) drug therapy; Z85.850 Personal history of malignant neoplasm of thyroid
CPT/HCPCS: 36415; 57522; 81025; 85027; 86850; 86900; 86901; 88307; J1100; J1885; J2250; J2405; J3010

== ENCOUNTER 2020-10-26 21:10 | Emergency (ER) | payer OTHER ==
[~2020-10-26] VITALS: Ht 157.5 cm; Wt 103.7 kg
[~2020-10-26 21:10] MED LIST changes: -LR 1,000 ML IV ONE
[2020-10-26] MEDS ORDERED: LISI20TA33 PO (21:19)
[2020-10-26] MEDS ORDERED: DERMABOND TOPICAL SKIN ADHESIVE TOP ONE (22:35)
[2020-10-26 22:56] VITALS: BP 138/71
== END 2020-10-26 23:00 | disposition home or self-care (01) ==
LOC: M ED 21:10
DX: S01.01XA Laceration without foreign body of scalp, initial encounter (principal); W22.09XA Striking against other stationary object, initial encounter; Y92.098 Other place in other non-institutional residence as the place of occurrence of the external cause; Y93.01 Activity, walking, marching and hiking; Y99.8 Other external cause status; E11.9 Type 2 diabetes mellitus without complications; D64.9 Anemia, unspecified; K21.9 Gastro-esophageal reflux disease without esophagitis; F32.9 Major depressive disorder, single episode, unspecified; Z88.5 Allergy status to narcotic agent; Z79.899 Other long term (current) drug therapy; Z79.84 Long term (current) use of oral hypoglycemic drugs